=== PATIENT | female | born 1960 | race Caucasian/White ===

== ENCOUNTER 2022-09-06 04:37 | Emergency (ER) | payer BC ==
--- OUTSIDE RECORDS SUMMARY | 2022-09-06 04:42 | XMS REPORT | Continuity of Care Document ---
:1960 Author Organization [facility] t Address [facility] [place] [address] Care Team Providers Name Role Phone MALORIE CORLEY Primary Care Physician Unavailable CARLITO PEARSON Attending Clinician Unavailable SANDY_RIGOC_Black_D Attending Clinician Unavailable MALORIE CORLEY Attending Clinician Unavailable Malorie Corley MD Attending Clinician JENNIFER_Summer Attending Clinician Unavailable Andres Rodriguez Attending Clinician [phone] SANDY_SHEREE_Black_[place] Admitting Clinician Unavailable MALORIE CORLEY Admitting Clinician Unavailable JENNIFER_Summer Admitting Clinician Unavailable Payers Payer Name Policy Type Policy Number Effective Date Expiration Date Jimy villarreal BCBS-[place]: [employer] [id number] 2017 - BLUECHOICE - OPEN 00:00:00 ACCESS BCBS PPO POS EPO [id number] 2019 [place]ICE 00:00:00 [place] [id number] 2019 ADVANTAGE (HMO) 00:00:00 Problems Condition Condition Condition Status Onset Resolution Last Treating Co mments Source Name Details Category Date Date Treatment Clinician Date Pneumonia Pneumonia Disease Active 2021-[address] [facility] due [facility] 09[facility]12 [facility] gram-negat gram-negat 00:00: Me dical serge serge 00 Center bacteria bacteria Allergies, Adverse Reactions, Alerts Allergy Allergy Status Severity Reaction(s) Onset Inactive Treating Comm ents Source Name Type Date Date Clinician CIPROFLO Allergy Active High Anaphylaxis 2021-[address] [facility] [address] [facility] XACIN -03 [facility] Medical 00 Center WASP Allergy Active 2021-[address] [facility] VENOM 1-03 [facility] Center Ciproflo Propensi Active Anaphylaxis 2021-[address] xacin ty to 09-12 [facility] adverse 00:00: Medical reaction 00 Center s Wasp Propensi Active 2021-[address] [facility] Venom ty to 09-12 [facility] adverse 00:00: Medical reaction 00 Center s NO KNOWN Allergy Active [facility] Social History Social Habit Start Date Stop Date Quantity Comments Source History SDOH [facility] Alcohol Std Drinks Medica l Center History SDOH [facility] Alcohol [facility]inge Medical Armando [facility] History [facility] Alcohol Comment Medical C enter History SDOH [facility] Transport Non-Med Medical Center History [facility] 2022-07-14 2022-07-[address] [facility] Transport Med 00:00:00 00:00:[address] History [facility] 2022-07-14 2022-07-[address] [facility] Housing Unable to 00:00:00 00:00:00 Medical Center Pay History [facility] 2022-07-14 2022-07-[address] [facility] Housing Places 00:00:00 00:00:00 Medical Ce nter Lived History [facility] 2022-07-14 2022-07-[address] [facility] Housing Homeless 00:00:00 00:00:00 Medical Center Last Year Tobacco use and 2022-07-13 2022-07-[address] [facility] exposure 00:00:00 00:00:00 Medical Center Alcohol intake 2022-07-13 2022-07-[address] [facility] 00:00:00 00:00:00 non-drinker Medical Cente r (finding) History [facility] 2022-07-13 2022-07-[address] [facility] Alcohol Frequency 00:00:00 00:00:00 Medical Center Sex Assigned At [address] [facility] 00:00[facility]00 00:[facility]:00 Medical Center Smoking Status Start Date Stop Date Source Never smoker [facility] Medications Ordered Filled Start Stop Current Ordering Indication Dosage Frequency Signature Comments Components Source Medication Medication Date Date Medication? Clinician (SIG) Name Name ondansetron 2021-09 Yes 4mg Take [address] (ZOFRAN) 4 08 by mouth [facility] MG tablet 15:50: daily as Medi dalia 37 needed for Center Nausea. sucralfate 2021-09 Yes 1g Take [address] [facility] (CARAFATE) 08 by mouth 3 [facility] 1 gram 15:50: (three) Medical tablet 37 times Center daily before meals BEFORE MEALS . metFORMIN 2021-09 Yes 500mg Take [address] [facility] (GLUCOPHAGE 1-08 mg by [facility] ) 500 MG 15:50: mouth Medical tablet 37 daily with Center breakfast. albuterol 2021-09- Yes 1{puff} Inhale [address] [facility] HFA 09-17 puff by [facility] (VENTOLIN 00:00: 23:59 mouth via Me dical HFA) 90 00 :00 inhaler Center mcg/actuati every 6 on inhaler (six) hours as needed for Wheezing. cefdinir 2021-09- No 300mg Q.5D Take 1 [facility] (OMNICEF) 09-17 capsule [facility] 300 MG 00:00: 23:59 (300 mg Medical capsule 00 :00 total) by Center mouth 2 (two) times daily for 10 days. benzonatate 2021-09- No 100mg Take [address] (TESSALON) 09-17 capsule [facility] 100 MG 00:00: 23:59 (100 mg Medical capsule 00 :00 total) by Center mouth 3 (three) times daily as needed for Cough for up to 7 days. methylPREDN 2021-09- No follow [facility] ISolone 09-17 package [facility] (MEDROL 00:00: 23:59 directions Med ical DOSEPACK) 4 00 :00 . Center mg tablet Xeomin 100 Xeomin 100 No Xeomin 100 [place] unit unit 2-25 unit Communi intramuscul intramuscul 16:26: intramuscu ty ar ar 00 lar Hospita solutionInj solutionInj solutionIn l ect 20 ect 20 ject 20 Clinics units by units by units by intramuscul intramuscul intramuscu ar route. ar route. lar route. omeprazole omeprazole No omeprazole [place] 40 mg 40 mg 40 mg Communi capsule,del capsule,del capsule,de ty ayed ayed layed Hospita release release release l TAKE 1 TAKE 1 TAKE 1 Clinics CAPSULE BY CAPSULE BY CAPSULE BY MOUTH ONCE MOUTH ONCE MOUTH ONCE DAILY DAILY DAILY ondansetron ondansetron No ondansetro [place] HCl 4 mg HCl 4 mg n HCl 4 mg C [facility]i tablet TAKE tablet TAKE tablet ty 1 TABLET BY 1 TABLET BY TAKE 1 Hospita MOUTH TWICE MOUTH TWICE TABLET BY l DAILY DAILY MOUTH Clinic s NEEDED FOR NEEDED FOR TWICE NAUSEA AND NAUSEA AND DAILY VOMITING VOMITING NEEDED FOR NAUSEA AND VOMITING pantoprazol pantoprazol No pantoprazo [place] e 40 mg e 40 mg le 40 mg Commu ni tablet,jonathan tablet,jonathan tablet,del ty yed release yed release ayed H ospita TAKE 1 TAKE 1 release l TABLET BY TABLET BY TAKE 1 Cli nics MOUTH ONCE MOUTH ONCE TABLET BY DAILY DAILY MOUTH ONCE DAILY potassium potassium No potassium [place] chloride ER chloride ER chloride Communi 20 mEq 20 mEq ER 20 mEq ty tablet,exte tablet,exte tablet,ext Hospita nded nded ended l release release release Clinic s TAKE 1 TAKE 1 TAKE 1 TABLET BY TABLET BY TABLET BY MOUTH ONCE MOUTH ONCE MOUTH ONCE DAILY DAILY DAILY potassium potassium No potassium [place] chloride ER chloride ER chloride Communi 20 mEq 20 mEq ER 20 mEq ty tablet,exte tablet,exte tablet,ext Hospita nded nded ended l release(par release(par release(la Clinics t/cryst) t/cryst) rt/cryst) TAKE 1 TAKE 1 TAKE 1 TABLET BY TABLET BY TABLET BY MOUTH ONCE MOUTH ONCE MOUTH ONCE DAILY DAILY DAILY promethazin promethazin No promethazi [place] e 6.25 e 6.25 ne 6.25 Communi mg-codeine mg-codeine mg-codeine ty 10 mg/5 mL 10 mg/5 mL 10 mg/5 mL Hospita syrup TAKE syrup TAKE syrup TAKE l 5 ML BY 5 ML BY 5 ML BY Clinic s MOUTH EVERY MOUTH EVERY MOUTH 6 HOURS 6 HOURS EVERY 6 NEEDED FOR NEEDED FOR HOURS COUGH COUGH NEEDED FOR COUGH promethazin promethazin No 5mL Q4H promethazi [place] e-DM 6.25 e-DM 6.25 ne-DM 6.25 Communi mg-15 mg/5 mg-15 mg/5 mg-15 mg/5 ty mL oral mL oral mL oral Hospit a syrup Take syrup Take syrup Take l 5 mL every 5 mL every 5 mL every Clinics 4 hours by 4 hours by 4 hours by oral route oral route oral route as needed as needed as needed for 4 days. for 4 days. for 4 days. quetiapine quetiapine No quetiapine [place] 50 mg 50 mg 50 mg Communi tablet TAKE tablet TAKE tablet ty 1 TABLET BY 1 TABLET BY TAKE 1 Hospita MOUTH AT MOUTH AT TABLET BY l BEDTIME BEDTIME MOUTH AT Clini cs BEDTIME sertraline sertraline No sertraline [place] 100 mg 100 mg 100 mg Communi tablet TAKE tablet TAKE tablet ty 2 TABLETS 2 TABLETS TAKE 2 [facility] BY MOUTH BY MOUTH TABLETS BY l ONCE DAILY ONCE DAILY MOUTH ONCE Clinics DAILY tizanidine tizanidine No tizanidine [place] 4 mg tablet 4 mg tablet 4 mg C [facility]i TAKE 1 TAKE 1 tablet ty TABLET BY TABLET BY TAKE 1 [facility] MOUTH ONCE MOUTH ONCE TABLET BY l DAILY DAILY MOUTH ONCE C linics NEEDED FOR NEEDED FOR DAILY SPASMS SPASMS NEEDED FOR SPASMS Xeomin 100 Xeomin 100 No 20unit( Xeomin 100 [place] unit unit s) unit Communi intramuscul intramuscul intramuscu ty ar solution ar solution lar H ospita Inject 20 Inject 20 solution l units by units by Inject 20 Cl inics intramuscul intramuscul units by ar route. ar route. intramuscu lar route. Zithromax Zithromax No Zithromax [place] Z-Solis 250 Z-Solis 250 Z-Solis 250 Communi mg tablet mg tablet mg tablet ty TAKE 2 TAKE 2 TAKE 2 Hospita TABLETS TABLETS TABLETS l (500 MG) BY (500 MG) BY (500 MG) Clinics ORAL ROUTE ORAL ROUTE BY ORAL ONCE DAILY ONCE DAILY ROUTE ONCE FOR 1 DAY FOR 1 DAY DAILY FOR THEN 1 THEN 1 1 DAY THEN TABLET (250 TABLET (250 1 TABLET MG) BY ORAL MG) BY ORAL (250 MG) ROUTE ONCE ROUTE ONCE BY ORAL DAILY FOR 4 DAILY FOR 4 ROUTE ONCE DAYS DAYS DAILY FOR 4 DAYS zolpidem 10 zolpidem 10 No zolpidem [place] mg tablet mg tablet 10 mg Comm uni TAKE 1 TAKE 1 tablet ty TABLET BY TABLET BY TAKE 1 [facility] MOUTH AT MOUTH AT TABLET BY l BEDTIME BEDTIME MOUTH AT Clinics NEEDED FOR NEEDED FOR BEDTIME INSOMNIA INSOMNIA NEEDED FOR INSOMNIA albuterol albuterol No albuterol [place] sulfate HFA sulfate HFA sulfate Communi 90 90 HFA 90 ty mcg/actuati mcg/actuati mcg/actuat [facility] on aerosol ion l inhaler inhaler aerosol Clinic s INHALE 1 INHALE 1 inhaler PUFF BY PUFF BY INHALE 1 MOUTH EVERY MOUTH EVERY PUFF BY 4 TO 6 4 TO 6 MOUTH HOURS HOURS EVERY 4 TO NEEDED FOR NEEDED FOR 6 HOURS SHORTNESS SHORTNESS NEEDED FOR OF BREATH OF BREATH SHORTNESS OF BREATH amlodipine amlodipine No amlodipine [place] 10 mg 10 mg 10 mg Communi tablet TAKE tablet TAKE tablet ty 1 TABLET BY 1 TABLET BY TAKE 1 Hospita MOUTH ONCE MOUTH ONCE TABLET BY l DAILY DAILY MOUTH ONCE Clinics DAILY celecoxib celecoxib No celecoxib [place] 200 mg 200 mg 200 mg Communi capsule capsule capsule ty TAKE 1 TAKE 1 TAKE 1 Hospita CAPSULE BY CAPSULE BY CAPSULE BY l MOUTH ONCE MOUTH ONCE MOUTH ONCE Clinics DAILY DAILY DAILY Euthyrox Euthyrox No Euthyrox Swe dest[place] 100 mcg 100 mcg 100 mcg Commun i tablet TAKE tablet TAKE tablet ty 1 TABLET BY 1 TABLET BY TAKE 1 Hospita MOUTH ONCE MOUTH ONCE TABLET BY l DAILY DAILY MOUTH ONCE Clinics DAILY furosemide furosemide No furosemide [place] 40 mg 40 mg 40 mg Communi tablet TAKE tablet TAKE tablet ty 1 TABLET BY 1 TABLET BY TAKE 1 Hospita MOUTH ONCE MOUTH ONCE TABLET BY l DAILY DAILY MOUTH ONCE Clinics DAILY glimepiride glimepiride No glimepirid [place] 2 mg tablet 2 mg tablet e 2 mg Communi TAKE 1 TAKE 1 tablet ty TABLET BY TABLET BY TAKE 1 [facility] MOUTH TWICE MOUTH TWICE TABLET BY l DAILY DAILY MOUTH Clinics TWICE DAILY lorazepam 2 lorazepam 2 No lorazepam [place] mg tablet mg tablet 2 mg Commu ni TAKE 1 TAKE 1 tablet ty TABLET BY TABLET BY TAKE 1 [facility] MOUTH TWICE MOUTH TWICE TABLET BY l DAILY DAILY MOUTH Clinic s NEEDED FOR NEEDED FOR TWICE ANXIETY ANXIETY DAILY NEEDED FOR ANXIETY meclizine meclizine No meclizine [place] 25 mg 25 mg 25 mg Communi tablet TAKE tablet TAKE tablet ty 1 TABLET BY 1 TABLET BY TAKE 1 Hospita MOUTH TWICE MOUTH TWICE TABLET BY l DAILY DAILY MOUTH Clinic s NEEDED FOR NEEDED FOR TWICE ITCHING ITCHING DAILY NEEDED FOR ITCHING metformin metformin No metformin [place] ER 500 mg ER 500 mg ER 500 mg Communi tablet,exte tablet,exte tablet,ext ty nded nded ended Hospita release 24 release 24 release 24 l hr TAKE 1 hr TAKE 1 hr TAKE 1 Clinics TABLET BY TABLET BY TABLET BY MOUTH TWICE MOUTH TWICE MOUTH DAILY DAILY TWICE DAILY methylpredn methylpredn No 1dose methylpred [place] isolone 4 isolone 4 pk(s) nisolone 4 Communi mg tablets mg tablets mg tablets ty in a dose in a dose in a dose Hospita pack Take 1 pack Take 1 pack Take l dose pk by dose pk by 1 dose pk Clinics oral route oral route by oral as as route as directed. directed. directed. omeprazole omeprazole No omeprazole [place] 40 mg 40 mg 40 mg Communi capsule,del capsule,del capsule,de ty ayed ayed layed Hospita release release release l TAKE 1 TAKE 1 TAKE 1 Clinics CAPSULE BY CAPSULE BY CAPSULE BY MOUTH ONCE MOUTH ONCE MOUTH ONCE DAILY DAILY DAILY ondansetron ondansetron No ondansetro [place] HCl 4 mg HCl 4 mg n HCl 4 mg C [facility]i tablet TAKE tablet TAKE tablet ty 1 TABLET BY 1 TABLET BY TAKE 1 Hospita MOUTH TWICE MOUTH TWICE TABLET BY l DAILY DAILY MOUTH Clinic s NEEDED FOR NEEDED FOR TWICE NAUSEA AND NAUSEA AND DAILY VOMITING VOMITING NEEDED FOR NAUSEA AND VOMITING pantoprazol pantoprazol No pantoprazo [place] e 40 mg e 40 mg le 40 mg Commu ni tablet,jonathan tablet,jonathan tablet,del ty yed release yed release ayed H ospita TAKE 1 TAKE 1 release l TABLET BY TABLET BY TAKE 1 Cli nics MOUTH ONCE MOUTH ONCE TABLET BY DAILY DAILY MOUTH ONCE DAILY potassium potassium No potassium [place] chloride ER chloride ER chloride Communi 20 mEq 20 mEq ER 20 mEq ty tablet,exte tablet,exte tablet,ext Hospita nded nded ended l release release release Clinic s TAKE 1 TAKE 1 TAKE 1 TABLET BY TABLET BY TABLET BY MOUTH ONCE MOUTH ONCE MOUTH ONCE DAILY DAILY DAILY potassium potassium No potassium [place] chloride ER chloride ER chloride Communi 20 mEq 20 mEq ER 20 mEq ty tablet,exte tablet,exte tablet,ext Hospita nded nded ended l release(par release(par release(pa Clinics t/cryst) t/cryst) rt/cryst) TAKE 1 TAKE 1 TAKE 1 TABLET BY TABLET BY TABLET BY MOUTH ONCE MOUTH ONCE MOUTH ONCE DAILY DAILY DAILY promethazin promethazin No promethazi [place] e 6.25 e 6.25 ne 6.25 Communi mg-codeine mg-codeine mg-codeine ty 10 mg/5 mL 10 mg/5 mL 10 mg/5 mL Hospita syrup TAKE syrup TAKE syrup TAKE l 5 ML BY 5 ML BY 5 ML BY Clinic s MOUTH EVERY MOUTH EVERY MOUTH 6 HOURS 6 HOURS EVERY 6 NEEDED FOR NEEDED FOR HOURS COUGH COUGH NEEDED FOR COUGH promethazin promethazin No 5mL Q4H promethazi [place] e-DM 6.25 e-DM 6.25 ne-DM 6.25 Communi mg-15 mg/5 mg-15 mg/5 mg-15 mg/5 ty mL oral mL oral mL oral Hospit a syrup Take syrup Take syrup Take l 5 mL every 5 mL every 5 mL every Clinics 4 hours by 4 hours by 4 hours by oral route oral route oral route as needed as needed as needed for 4 days. for 4 days. for 4 days. quetiapine quetiapine No quetiapine [place] 50 mg 50 mg 50 mg Communi tablet TAKE tablet TAKE tablet ty 1 TABLET BY 1 TABLET BY TAKE 1 Hospita MOUTH AT MOUTH AT TABLET BY l BEDTIME BEDTIME MOUTH AT Clini cs BEDTIME sertraline sertraline No sertraline [place] 100 mg 100 mg 100 mg Communi tablet TAKE tablet TAKE tablet ty 2 TABLETS 2 TABLETS TAKE 2 [facility] BY MOUTH BY MOUTH TABLETS BY l ONCE DAILY ONCE DAILY MOUTH ONCE Clinics DAILY tizanidine tizanidine No tizanidine [place] 4 mg tablet 4 mg tablet 4 mg C [facility]i TAKE 1 TAKE 1 tablet ty TABLET BY TABLET BY TAKE 1 [facility] MOUTH ONCE MOUTH ONCE TABLET BY l DAILY DAILY MOUTH ONCE C linics NEEDED FOR NEEDED FOR DAILY SPASMS SPASMS NEEDED FOR SPASMS Xeomin 100 Xeomin 100 No 20unit( Xeomin 100 [place] unit unit s) unit Communi intramuscul intramuscul intramuscu ty ar solution ar solution lar H ospita Inject 20 Inject 20 solution l units by units by Inject 20 Cl inics intramuscul intramuscul units by ar route. ar route. intramuscu lar route. Zithromax Zithromax No Zithromax [place] Z-Solis 250 Z-Solis 250 Z-Solis 250 Communi mg tablet mg tablet mg tablet ty TAKE 2 TAKE 2 TAKE 2 Hospita TABLETS TABLETS TABLETS l (500 MG) BY (500 MG) BY (500 MG) Clinics ORAL ROUTE ORAL ROUTE BY ORAL ONCE DAILY ONCE DAILY ROUTE ONCE FOR 1 DAY FOR 1 DAY DAILY FOR THEN 1 THEN 1 1 DAY THEN TABLET (250 TABLET (250 1 TABLET MG) BY ORAL MG) BY ORAL (250 MG) ROUTE ONCE ROUTE ONCE BY ORAL DAILY FOR 4 DAILY FOR 4 ROUTE ONCE DAYS DAYS DAILY FOR 4 DAYS zolpidem 10 zolpidem 10 No zolpidem [place] mg tablet mg tablet 10 mg Comm uni TAKE 1 TAKE 1 tablet ty TABLET BY TABLET BY TAKE 1 [facility] MOUTH AT MOUTH AT TABLET BY l BEDTIME BEDTIME MOUTH AT Clinics NEEDED FOR NEEDED FOR BEDTIME INSOMNIA INSOMNIA NEEDED FOR INSOMNIA albuterol albuterol No albuterol [place] sulfate HFA sulfate HFA sulfate Communi 90 90 HFA 90 ty mcg/actuati mcg/actuati mcg/actuat Hospita on aerosol on aerosol ion l inhaler inhaler aerosol Clinic s INHALE 1 INHALE 1 inhaler PUFF BY PUFF BY INHALE 1 MOUTH EVERY MOUTH EVERY PUFF BY 4 TO 6 4 TO 6 MOUTH HOURS HOURS EVERY 4 TO NEEDED FOR NEEDED FOR 6 HOURS SHORTNESS SHORTNESS NEEDED FOR OF BREATH OF BREATH SHORTNESS OF BREATH amlodipine amlodipine No amlodipine [place] 10 mg 10 mg 10 mg Communi tablet TAKE tablet TAKE tablet ty 1 TABLET BY 1 TABLET BY TAKE 1 Hospita MOUTH ONCE MOUTH ONCE TABLET BY l DAILY DAILY MOUTH ONCE Clinics DAILY azithromyci azithromyci No azithromyc [place] n 250 mg n 250 mg in 250 mg Co [facility] tablet TAKE tablet TAKE tablet ty 2 TABLETS 2 TABLETS TAKE 2 [facility] BY MOUTH ON BY MOUTH ON TABLETS BY l DAY 1 AND DAY 1 AND MOUTH ON C linics THEN TAKE 1 THEN TAKE 1 DAY 1 AND TABLET BY TABLET BY THEN TAKE MOUTH ONCE MOUTH ONCE 1 TABLET A DAY ON A DAY ON BY MOUTH DAY 2 DAY 2 ONCE A DAY THROUGH DAY THROUGH DAY ON DAY 2 5 5 THROUGH DAY 5 celecoxib celecoxib No celecoxib [place] 200 mg 200 mg 200 mg Communi capsule capsule capsule ty TAKE 1 TAKE 1 TAKE 1 Hospita CAPSULE BY CAPSULE BY CAPSULE BY l MOUTH ONCE MOUTH ONCE MOUTH ONCE Clinics DAILY DAILY DAILY Euthyrox Euthyrox No Euthyrox Swe destin 100 mcg 100 mcg 100 mcg Commun i tablet TAKE tablet TAKE tablet ty 1 TABLET BY 1 TABLET BY TAKE 1 Hospita MOUTH ONCE MOUTH ONCE TABLET BY l DAILY DAILY MOUTH ONCE Clinics DAILY furosemide furosemide No furosemide [place] 40 mg 40 mg 40 mg Communi tablet TAKE tablet TAKE tablet ty 1 TABLET BY 1 TABLET BY TAKE 1 Hospita MOUTH ONCE MOUTH ONCE TABLET BY l DAILY DAILY MOUTH ONCE Clinics DAILY glimepiride glimepiride No glimepirid [place] 2 mg tablet 2 mg tablet e 2 mg Communi TAKE 1 TAKE 1 tablet ty TABLET BY TABLET BY TAKE 1 [facility] MOUTH TWICE MOUTH TWICE TABLET BY l DAILY DAILY MOUTH Clinics TWICE DAILY lorazepam 2 lorazepam 2 No lorazepam [place] mg tablet mg tablet 2 mg Commu ni TAKE 1 TAKE 1 tablet ty TABLET BY TABLET BY TAKE 1 [facility] MOUTH TWICE MOUTH TWICE TABLET BY l DAILY DAILY MOUTH Clinic s NEEDED FOR NEEDED FOR TWICE ANXIETY ANXIETY DAILY NEEDED FOR ANXIETY meclizine meclizine No meclizine [place] 25 mg 25 mg 25 mg Communi tablet TAKE tablet TAKE tablet ty 1 TABLET BY 1 TABLET BY TAKE 1 Hospita MOUTH TWICE MOUTH TWICE TABLET BY l DAILY DAILY MOUTH Clinic s NEEDED FOR NEEDED FOR TWICE ITCHING ITCHING DAILY NEEDED FOR ITCHING metformin metformin No metformin [place] ER 500 mg ER 500 mg ER 500 mg Communi tablet,exte tablet,exte tablet,ext ty nded nded ended Hospita release 24 release 24 release 24 l hr TAKE 1 hr TAKE 1 hr TAKE 1 Clinics TABLET BY TABLET BY TABLET BY MOUTH TWICE MOUTH TWICE MOUTH DAILY DAILY TWICE DAILY omeprazole omeprazole No omeprazole [place] 40 mg 40 mg 40 mg Communi capsule,del capsule,del capsule,de ty ayed ayed layed Hospita release release release l TAKE 1 TAKE 1 TAKE 1 Clinics CAPSULE BY CAPSULE BY CAPSULE BY MOUTH ONCE MOUTH ONCE MOUTH ONCE DAILY DAILY DAILY ondansetron ondansetron No ondansetro [place] HCl 4 mg HCl 4 mg n HCl 4 mg C [facility] tablet TAKE tablet TAKE tablet ty 1 TABLET BY 1 TABLET BY TAKE 1 Hospita MOUTH TWICE MOUTH TWICE TABLET BY l DAILY DAILY MOUTH Clinic s NEEDED FOR NEEDED FOR TWICE NAUSEA AND NAUSEA AND DAILY VOMITING VOMITING NEEDED FOR NAUSEA AND VOMITING pantoprazol pantoprazol No pantoprazo [place] e 40 mg e 40 mg le 40 mg Commu ni tablet,jonathan tablet,jonathan tablet,del ty yed release yed release ayed [facility]spita TAKE 1 TAKE 1 release l TABLET BY TABLET BY TAKE 1 Cli nics MOUTH ONCE MOUTH ONCE TABLET BY DAILY DAILY MOUTH ONCE DAILY potassium potassium No potassium [place] chloride ER chloride ER chloride Communi 20 mEq 20 mEq ER 20 mEq ty tablet,exte tablet,exte tablet,ext Hospita nded nded ended l release release release Clinic s TAKE 1 TAKE 1 TAKE 1 TABLET BY TABLET BY TABLET BY MOUTH ONCE MOUTH ONCE MOUTH ONCE DAILY DAILY DAILY potassium potassium No potassium [place] chloride ER chloride ER chloride Communi 20 mEq 20 mEq ER 20 mEq ty tablet,exte tablet,exte tablet,ext Hospita nded nded ended l release(par release(par release(pa Clinics t/cryst) t/cryst) rt/cryst) TAKE 1 TAKE 1 TAKE 1 TABLET BY TABLET BY TABLET BY MOUTH ONCE MOUTH ONCE MOUTH ONCE DAILY DAILY DAILY promethazin promethazin No promethazi [place] e 6.25 e 6.25 ne 6.25 Communi mg-codeine mg-codeine mg-codeine ty 10 mg/5 mL 10 mg/5 mL 10 mg/5 mL [facility] syrup TAKE syrup TAKE syrup TAKE l 5 ML BY 5 ML BY 5 ML BY Clinic s MOUTH EVERY MOUTH EVERY MOUTH 6 HOURS 6 HOURS EVERY 6 NEEDED FOR NEEDED FOR HOURS COUGH COUGH NEEDED FOR COUGH quetiapine quetiapine No quetiapine [place] 50 mg 50 mg 50 mg Communi tablet TAKE tablet TAKE tablet ty 1 TABLET BY 1 TABLET BY TAKE 1 Hospita MOUTH AT MOUTH AT TABLET BY l BEDTIME BEDTIME MOUTH AT Clini cs BEDTIME sertraline sertraline No sertraline [place] 100 mg 100 mg 100 mg Communi tablet TAKE tablet TAKE tablet ty 2 TABLETS 2 TABLETS TAKE 2 [facility] BY MOUTH BY MOUTH TABLETS BY l ONCE DAILY ONCE DAILY MOUTH ONCE Clinics DAILY tizanidine tizanidine No tizanidine [place] 4 mg tablet 4 mg tablet 4 mg C [facility] TAKE 1 TAKE 1 tablet ty TABLET BY TABLET BY TAKE 1 [facility] MOUTH ONCE MOUTH ONCE TABLET BY l DAILY DAILY MOUTH ONCE C linics NEEDED FOR NEEDED FOR DAILY SPASMS SPASMS NEEDED FOR SPASMS Xeomin 100 Xeomin 100 No 20unit( Xeomin 100 [place] unit unit s) unit Communi intramuscul intramuscul intramuscu ty ar solution ar solution lar [facility]ita Inject 20 Inject 20 solution l units by units by Inject 20 Cl inics intramuscul intramuscul units by ar route. ar route. intramuscu lar route. zolpidem 10 zolpidem 10 No zolpidem [place] mg tablet mg tablet 10 mg Comm uni TAKE 1 TAKE 1 tablet ty TABLET BY TABLET BY TAKE 1 [facility] MOUTH AT MOUTH AT TABLET BY l BEDTIME BEDTIME MOUTH AT Clinics NEEDED FOR NEEDED FOR BEDTIME INSOMNIA INSOMNIA NEEDED FOR INSOMNIA albuterol albuterol No albuterol [place] sulfate HFA sulfate HFA sulfate Communi 90 90 HFA 90 ty mcg/actuati mcg/actuati mcg/actuat Hospita on aerosol on aerosol ion l inhaler inhaler aerosol Clinic s INHALE 1 INHALE 1 inhaler PUFF BY PUFF BY INHALE 1 MOUTH EVERY MOUTH EVERY PUFF BY 4 TO 6 4 TO 6 MOUTH HOURS HOURS EVERY 4 TO NEEDED FOR NEEDED FOR 6 HOURS SHORTNESS SHORTNESS NEEDED FOR OF BREATH OF BREATH SHORTNESS OF BREATH amlodipine amlodipine No amlodipine [place] 10 mg 10 mg 10 mg Communi tablet TAKE tablet TAKE tablet ty 1 TABLET BY 1 TABLET BY TAKE 1 Hospita MOUTH ONCE MOUTH ONCE TABLET BY l DAILY DAILY MOUTH ONCE Clinics DAILY celecoxib celecoxib No celecoxib [place] 200 mg 200 mg 200 mg Communi capsule capsule capsule ty TAKE 1 TAKE 1 TAKE 1 Hospita CAPSULE BY CAPSULE BY CAPSULE BY l MOUTH ONCE MOUTH ONCE MOUTH ONCE Clinics DAILY DAILY DAILY Euthyrox Euthyrox No Euthyrox Swe destin 100 mcg 100 mcg 100 mcg Commun i tablet TAKE tablet TAKE tablet ty 1 TABLET BY 1 TABLET BY TAKE 1 Hospita MOUTH ONCE MOUTH ONCE TABLET BY l DAILY DAILY MOUTH ONCE Clinics DAILY furosemide furosemide No furosemide [place] 40 mg 40 mg 40 mg Communi tablet TAKE tablet TAKE tablet ty 1 TABLET BY 1 TABLET BY TAKE 1 Hospita MOUTH ONCE MOUTH ONCE TABLET BY l DAILY DAILY MOUTH ONCE Clinics DAILY glimepiride glimepiride No glimepirid [place] 2 mg tablet 2 mg tablet e 2 mg Communi TAKE 1 TAKE 1 tablet ty TABLET BY TABLET BY TAKE 1 [facility] MOUTH TWICE MOUTH TWICE TABLET BY l DAILY DAILY MOUTH Clinics TWICE DAILY lorazepam 2 lorazepam 2 No lorazepam [place] mg tablet mg tablet 2 mg Commu ni TAKE 1 TAKE 1 tablet ty TABLET BY TABLET BY TAKE 1 [facility] MOUTH TWICE MOUTH TWICE TABLET BY l DAILY DAILY MOUTH Clinic s NEEDED FOR NEEDED FOR TWICE ANXIETY ANXIETY DAILY NEEDED FOR ANXIETY meclizine meclizine No meclizine [place] 25 mg 25 mg 25 mg Communi tablet TAKE tablet TAKE tablet ty 1 TABLET BY 1 TABLET BY TAKE 1 Hospita MOUTH TWICE MOUTH TWICE TABLET BY l DAILY DAILY MOUTH Clinic s NEEDED FOR NEEDED FOR TWICE ITCHING ITCHING DAILY NEEDED FOR ITCHING metformin metformin No metformin [place] ER 500 mg ER 500 mg ER 500 mg Communi tablet,exte tablet,exte tablet,ext ty nded nded ended Hospita release 24 release 24 release 24 l hr TAKE 1 hr TAKE 1 hr TAKE 1 Clinics TABLET BY TABLET BY TABLET BY MOUTH TWICE MOUTH TWICE MOUTH DAILY DAILY TWICE DAILY methylpredn methylpredn No 1dose methylpred [place] isolone 4 isolone 4 pk(s) nisolone 4 Communi mg tablets mg tablets mg tablets ty in a dose in a dose in a dose Hospita pack Take 1 pack Take 1 pack Take l dose pk by dose pk by 1 dose pk Clinics oral route oral route by oral as as route as directed. directed. directed. Vital Signs Vital Name Observation Time Observation Value Comments Source HEIGHT 2022-07-13 19:15:00 161.3 cm WEIGHT 2022-07-13 19:15:00 75.297 kg HEIGHT 2022-07-13 19:15:00 161.3 cm WEIGHT 2022-07-13 19:15:00 75.297 kg HEIGHT 2022-07-13 19:15:00 161.3 cm WEIGHT 2022-07-13 19:15:00 75.297 kg Heart rate 2022-07-18 14:23:00 100 /min [facility] Respiratory rate 2022-07-18 14:23:00 18 /min [facility] Oxygen saturation in 2022-07-18 14:23:00 98 /min [facility] Arterial blood by Medical Ce nter Pulse oximetry Systolic blood 2022-07-18 12:00:00 185 mm[Hg] [facility] Diastolic blood 2022-07-18 12:00:00 87 mm[Hg] [facility] Body temperature 2022-07-18 12:00:00 36.39 Henrietta [facility] Body height 2022-07-13 19:15:00 161.3 cm [facility] Body weight 2022-07-13 19:15:00 75.297 kg [facility] BMI 2022-07-13 19:15:00 28.94 kg/m2 [facility] Procedures Procedure Date / Time Performed Performing Clinician Sour e POCT-GLUCOSE METER 2022-07-18 11:56:00 [facility] VIEW PORTABLE 2022-07-18 11:25:00 Carlito Pearson [facility] POCT-GLUCOSE METER 2022-07-18 06:10:00 Malorie Corley [facility] MAGNESIUM 2022-07-18 04:55:00 Malorie Corley [facility] COMPREHENSIVE METABOLIC 2022-07-18 04:55:00 Malorie Corley [facility] CBC W/PLT COUNT & AUTO 2022-07-18 04:55:00 [facility] W/PLT COUNT & AUTO 2022-07-18 04:55:00 [facility] POCT-GLUCOSE METER 2022-07-17 20:24:00 Malorie Corley [facility] POCT-GLUCOSE METER 2022-07-17 16:44:00 Barney [facility] POCT-GLUCOSE METER 2022-07-17 13:23:00 Malorie Corley [facility] XR CHEST 1 VIEW PORTABLE 2022-07-17 12:03:[address] [facility] US THORACENTESIS 2022-07-17 11:50:00 Mahi [facility] LACTATE DEHYDROGENASE 2022-07-17 11:49:00 Mahi [facility] ([facility]), BODY FLUID Medical Center PROTEIN, BODY FLUID 2022-07-17 11:49:00 Mahi [facility] BODY FLUID CELL COUNT 2022-07-17 11:49:00 Mahi [facility] WITH DIFFERENTIAL Medical Center GLUCOSE, BODY FLUID 2022-07-17 11:49:00 Mahi [facility] BODY FLUID CULTURE + GRAM 2022-07-17 11:48:00 Mahi [facility] CYTOLOGY 2022-07-17 11:48:00 [facility] PROTHROMBIN TIME/INR 2022-07-17 08:06:00 Destiney [facility] APTT 2022-07-17 08:06:00 Destiney [facility] POCT-GLUCOSE METER 2022-07-17 06:34:00 [facility]UM 2022-07-17 04:45:00 Malorie Corley [facility] COMPREHENSIVE METABOLIC 2022-07-17 04:45:00 Malorie Corley [facility] CBC W/PLT COUNT & AUTO 2022-07-17 04:45:00 Malorie Corley [facility] CBC W/PLT COUNT & AUTO 2022-07-17 04:45:00 [facility] POCT-GLUCOSE METER 2022-07-16 20:25:00 [facility] LEGIONELLA ANTIGEN, URINE 2022-07-16 18:37:00 Mahi [facility] POCT-GLUCOSE METER 2022-07-16 17:28:00 [facility] STREP PNEUMONIAE ANTIGEN 2022-07-16 17:23:00 Carlito Pearson [facility] POCT-GLUCOSE METER 2022-07-16 11:07:00 [facility] POCT-GLUCOSE METER 2022-07-16 08:58:00 [facility] 2022-07-16 05:17:00 Barney [facility] MAGNESIUM 2022-07-16 03:17:00 [facility]PRE[facility]IVE [facility]OLIC 2022-07-16 03:17:00 [facility] & AUTO 2022-07-16 03:17:00 Barney [facility] CBC W/PLT COUNT & AUTO 2022-07-16 03:17:00 Barney Malorie [facility] POCT-GLUCOSE METER 2022-07-15 18:45:00 Barney Malorie [facility] POCT-GLUCOSE METER 2022-07-15 16:24:00 [facility] POCT-GLUCOSE METER 2022-07-15 11:27:00 Barney Malorie [facility] POCT-GLUCOSE METER 2022-07-15 06:27:00 Edison [facility] MAGNESIUM 2022-07-15 04:17:00 Barney [facility] COMPREHENSIVE METABOLIC 2022-07-15 04:17:00 Barney [facility] CBC W/PLT COUNT & AUTO 2022-07-15 04:17:00 Barney Malorie [facility] CBC W/PLT COUNT & AUTO 2022-07-15 04:17:00 Barney Malorie [facility] POCT-GLUCOSE METER 2022-07-14 20:16:00 [facility] POCT-GLUCOSE METER 2022-07-14 16:12:00 Malorie Corley [facility] CT CHEST WITHOUT IV 2022-07-14 13:09:00 [facility] POCT-GLUCOSE METER 2022-07-14 11:29:00 Malorie Corley [facility] URINALYSIS W/ MICROSCOPIC 2022-07-14 04:35:00 [facility] MAGNESIUM 2022-07-14 04:34:00 Malorie Corley [facility] COMPREHENSIVE METABOLIC 2022-07-14 04:34:00 Malorie Corley [facility] CBC W/PLT COUNT & AUTO 2022-07-14 04:34:00 Malorie Corley [facility] CBC W/PLT COUNT & AUTO 2022-07-14 04:34:00 [facility] COMPREHENSIVE METABOLIC 2022-07-13 22:03:00 [facility] 2022-07-13 22:03:00 Malorie Corley [facility] CBC W/PLT COUNT & AUTO 2022-07-13 22:03:00 Malorie Corley [facility] HEMOGLOBIN A1C 2022-07-13 22:03:00 Malorie [facility] LIPID PANEL 2022-07-13 22:03:00 Malorie Corley [facility] CBC W/PLT COUNT & AUTO 2022-07-13 22:03:00 Malorie Corley [facility] SARS-COV2/INFLUENZA/RSV 2022-07-13 21:44:00 [facility] BLOOD CULTURE 2022-07-13 21:43:00 [facility] POCT-GLUCOSE METER 2022-07-13 20:39:00 Malorie Corley [facility] XR CHEST 1 VIEW PORTABLE 2022-07-13 19:50:[address] [facility] Plan of Care Planned Activity Planned Date Details Comments Source Future Scheduled 2027-07-13 Lipid panel (procedure) [facility] Test 00:00:00 [code = 25164679] Medical Ce nter Future Scheduled 2023-07-[address] [facility] Test 00:00:00 Counseling and Medical Cente r Screening (12+) [code = Tobacco Cessation Counseling and Screening (12+)] Future Scheduled 2022-05-11 INFLUENZA VACCINE (#1) [facility] 00:[facility]:00 [code = INFLUENZA Medical Ce nter VACCINE (#1)] Future Scheduled 2021-09-[address] [facility] Test 00:00:00 (12+) [code = Medical Center DEPRESSION SCREENING (12+)] Future Scheduled 2021-07-11 COVID-19 VACCINE (3 - [facility]:00 Booster for Pfizer Medical C enter series) [code = COVID-19 VACCINE (3 - Booster for Pfizer series)] Future Scheduled 2008 SHINGLES VACCINES ([address] [facility] Test 00:00:00 2) [code = SHINGLES [facility] VACCINES (1 of 2)] Future Scheduled 1979 Screening for malignant [facility] Test 00:00:00 neoplasm of cervix Medical C enter (procedure) [code = 807298730] Future Scheduled 1977 DTAP/TDAP/TD VACCINES [facility] 00:00:00 (1 - Tdap) [code = Medical C enter DTAP/TDAP/TD VACCINES (1 - Tdap)] Future Scheduled 1976 HEPATITIS C SCREENING [facility] 00:00:00 [code = HEPATITIS C Medical Center SCREENING] Future Scheduled [address] [facility] Test 00:00:00 0-64 YRS (1 - PCV) Medical C enter [code = PNEUMOCOCCAL VACCINE 0-64 YRS (1 - PCV)] Future Scheduled 1958 Screening for malignant [facility] Test 00:00:00 neoplasm of breast Medical C enter (procedure) [code = 978131331] Future Scheduled 1958 CT Colonography (combo) [facility] Test 00:00:00 [code = CT Colonography [facility] (combo)] Future Scheduled 1958 Screening for malignant [facility] Test 00:00:00 neoplasm of colon Medical Ce nter (procedure) [code = 302173926] Future Scheduled 1958 Screening for malignant [facility] Test 00:00:00 neoplasm of colon Medical Ce nter (procedure) [code = 774443985] Future Scheduled 1958 Screening for malignant [facility] Test 00:00:00 neoplasm of colon Medical Ce nter (procedure) [code = 592702403] Future Scheduled 1958 Screening for malignant [facility] Test 00:00:00 neoplasm of colon Medical Ce nter (procedure) [code = 937860681] Future Scheduled 1960 Sigmoidoscopy [code = [facility] Sigmoidoscopy] Medical Milagros r Encounters Start End Encounter Admission Attending Care Care Encounter Source Date/Time Date/Time Type Type Clinicians Facility Department ID 2022-08-27 2022-08-27 Outpatient VARSHA PEARSON [id number] [place] 00:00:00 00:00:00 CARLITO Eli ld 2022-08-14 2022-08-14 Outpatient GC_SWHAOMC_ PRIV PRIV [id number] [facility] 00:00:00 00:00:00 Black_D [id number] Medica l 2022-07-13 2022-07-18 [id number] 18:14:00 15:50:00 Encounter Gianluca [facility] 2022-07-13 2022-07-18 Inpatient UR BARNEY [facility] [id number] [facility] 18:14:00 15:50:00 Med 2022-07-13 2022-07-13 Travel [facility] [id number] [facility] 00[facility]00 [facility] 2020-11-30 2020-11-30 Outpatient SISSON_C [facility] 2020 [place] 02:53:00 02:53:00 0323 [facility] 2020-11-17 2020-11-17 Outpatient [facility] 2020 [place] 01:47:00 01:47:00 0310 [facility] 2020-11-17 2020-11-17 Outpatient Jennifer [facility] [id number] 00:00:00 00:00:00 Andres [id number] 2020-11-17 2020-11-17 [facility] [place] 00:[place]:00 00:00:00 Jennifer [facility] MSN, SAUSAGE LINKER, Hospital - ty TRANSFER AND LINE UP WORKER-C: [address] [place] [facility] s [address], [facility] [address], [place], [place] MSN, TRANSFER AND LINE UP WORKER-C [id number] , Ph. 2020-11-17 2020-11-17 Outpatient Jennifer [facility] [id number] 00:00:00 00:00:00 Andres [id number] 2020-11-08 2020-11-08 Outpatient [facility] 2020 [place] 09:10:00 09:10:00 0301 [facility] 2020-11-04 2020-11-04 Outpatient [facility]C [facility] 2020 [place] 04:00:00 04:00:00 0225 [facility] i [facility] 2020-11-04 2020-11-04 [facility] [place] 00:00:00 00:00:00 Jennifer [facility] Comm uni MSN, SAUSAGE LINKER, Hospital - ty TRANSFER AND LINE UP WORKER-C: [address] [place] [facility], [facility] s [address], [address], [place], [place] MSN, TRANSFER AND LINE UP WORKER-C [id number] , Ph. 2020-11-04 2020-11-04 [facility] [id number] 00:00:00 00:00:00 Andres [id number] 2020-11-01 2020-11-01 Outpatient FRANK [facility] [id number] [place] 10:58:00 10:58:00 0222 [facility] Results Test Description Test Time Test Comments Results Result Comments Source CYTOLOGY 2022-07-20 Medical Cytology 13:58:06 Report Case: [id number] Authorizing Provider: Carlito Pearson MD Collected: 07/17/2022 11:48 AM Ordering Location: [address] Med/Surg Received: 07/18/2022 10:12 AM Pathologist: Liat Kaur MD Specimen: Pleural, Left LEFT PLEURAL FLUID (CYTOSPINS AND CELL BLOCK): - NEGATIVE FOR MALIGNANCY - ACUTE INFLAMMATION Signing Pathologist Direct Phone Line: [phone] ically signed by Liat Kaur MD on 07/20/2022 at 1:58 [id number], [id number] pleural effusion, recent pneumonia due to gram-negative bacteria, history of Arthritis, Asthma, Diabetes mellitus, Hypertension, and Thyroid disease.LEFT PLEURAL FLUIDA. Pleural, Left.Received 250 ml delmer gelatinous fluid; prepared 4 cytospins and cell block(A2)- the cell block was fixed in formalin at 15:25 on 07/19/2022erformed.S atisfactorySt. [facility], Department of Pathology, [address] [place] [address], [facility]rt[facility], Department of Pathology, [address] [place] [address], [facility], Department of Pathology, [address] [place] [address], Body fluid culture + gram stain 2022-07-19 13:26:37 Test Item Value Reference Range Interpretation Comme nts Result (test code = 6463-4) See comment SESAR (test code = SESAR) No growth in 48 hours [facility] + GRAM [id number] 13:26:37 Test Item Value Reference Range Interpretation Comments CULTURE (BEAKER) (test code = See comment 1095) No growth in 48 hoursBLOOD [id number] 00:01:18 Test Item Value Reference Range Interpretation Comments CULTURE (BEAKER) (test No growth in 5 days code = 1095) BLOOD [id number] 00:01:18 Test Item Value Reference Range Interpretation Comments CULTURE (BEAKER) (test No growth in 5 days code = 1095) POC-Glucose [id number] 12:08:59 Test Item Value Reference Range Interpretation Comments POC-Glucose Meter (test 187 mg/dL 70-110 H : [facility] code = 1538) [address], [facility] [address]: Industrial Editor/Techni armando ID = [id number] for [place], Bro domingo Lab Interpretation (test Abnormal code = 66569-0) [facility] [id number] 12:08:59 Test Item Value Reference Range Interpretation Comments POC-GLUCOSE METER 187 mg/dL 70-110 H : TESTED A T [facility] [address]17 (BEAKER) (test code [address], = 1538) [facility] [address]: Industrial Editor/Techni armando ID = [id number] for Dapr emont, Apolonia RAD, CHEST, 1 VIEW, NON [id number] 11:44:00Reason for exam:->pleaural effusionShould this be performed at the bedside?->Yes [facility] : 1960 Sex: FFINAL REPORT Chest AP portable erect History provided: Left pleural effusion, status post left thoracentesis yesterday Heart size normal. Small loculated left basilar pneumothorax is againnoted. Residual pleural fluid on the left unchanged. Right lung remains clear. Signed: Orlando Lozano MDReport Verified Date/Time: 07/18/2022 11:44:27 Reading Location: [facility] Radiology Reading Room Body fluid cell count with [id number] 10:50:10 Test Item Value Reference Range Interpretation Comments Appearance (test code Hazy Clear A = 9335-1) Color (test code = Straw Colorless, 6824-7) Straw RBCs (test code = 1355 See_Comment H [Automate d 10021-1) message] The system which generated this result transmitted reference range : <=1 /cu mm. The reference range was not used to interpret this result as normal/abnormal . Adjusted WBC Count 2330 See_Comment H [Automat ed (test code = 24028-2) messag e] The system which generated this result transmitted reference range : <=5 /cu mm. The reference range was not used to interpret this result as normal/abnormal . Lining Cells (test 0 See_Comment [Automat ed code = 26375-4) message] The system which generated this result transmitted reference range : <=1 /cu mm. The reference range was not used to interpret this result as normal/abnormal . % Segs (test code = 84 % 96685-0) % Lymphs (test code = 15 % 51733-0) % Monos (test code = 1 % 81123-5) % Eos (test code = 0 % 12108-4) % Baso (test code = 0 % 99025-6) Interpretation (test Severe acute code = 19606-6) inflamamtion. Negative for malignancy Pathologist: (test Liat Kaur, code = 2620) ConchitaD. (electronic signature) Container Body Fluid EDTA Tube (test code = 2873) Lab Interpretation Abnormal (test code = 75379-4) [facility] WITH [id number] 10:50:10 Test Item Value Reference Range Interpretation Comments APPEARANCE FLUID Hazy Clear A (BEAKER) (test code = 510) COLOR FLUID Straw Colorless, Straw (BEAKER) (test code = 511) RBC FLUID (BEAKER) 1355 /cu mm See_Comment H [Automat ed (test code = 513) message] T he system which generated this result transmit darrian reference range : <=1. The refere nce range was not u sed to interpret th is result as normal/abnormal . ADJUSTED WBC FLUID 2330 /cu mm See_Comment H [Automat ed (BEAKER) (test code message] The = 1691) system which generated this result transmit darrian reference range : <=5. The refere nce range was not u sed to interpret th is result as normal/abnormal . LINING CELLS 0 /cu mm See_Comment [Automated (BEAKER) (test code message] The = 1590) system which generated this result transmit darrian reference range : <=1. The refere nce range was not u sed to interpret th is result as normal/abnormal . NEUTROPHILS FLUID 84 % (BEAKER) (test code = 1656) LYMPHS FLUID 15 % (BEAKER) (test code = 488) MONO/MACROPHAGE 1 % FLUID (BEAKER) (test code = 489) EOSINOPHILS FLUID 0 % (BEAKER) (test code = 491) BASO FLUID (BEAKER) 0 % (test code = 492) INTERPRETATION-210 Severe acute (BEAKER) (test code inflamamtion. = 2619) Negative for malignancy [id number]-[id number]-03 Liat Helekar, 0 (BEAKER) (test M.D. (electronic code = 2620) signature) CONTAINER BODY EDTA Tube FLUID (BEAKER) (test code = 2873) POCT-GLUCOSE [id number] 06:21:43 Test Item Value Reference Range Interpretation Comments POC-GLUCOSE METER 189 mg/dL 70-110 H : TESTED A T [facility] [address] (BEAKER) (test code [address], = 1538) [facility] [address]: Industrial Editor/Techni armando ID = [id number] for Rowan Sanchez COMPREHENSIVE METABOLIC [id number] 05:43:17 Test Item Value Reference Range Interpretation Comments TOTAL PROTEIN 7.0 gm/dL 6.0-8.5 Specimen sligh tly (BEAKER) (test hemolyzed code = 770) ALBUMIN (BEAKER) 2.9 g/dL 3.5-5.0 L Specimen sl ightly (test code = 1145) hemolyzed ALKALINE 77 U/L 30-115 PHOSPHATASE (BEAKER) (test code = 346) BILIRUBIN TOTAL 0.3 mg/dL 0.1-1.2 Specimen sli ghtly (BEAKER) (test hemolyzed code = 377) SODIUM (BEAKER) 135 meq/L 135-148 (test code = 381) POTASSIUM (BEAKER) 4.6 meq/L 3.6-5.5 Specimen slightly (test code = 379) hemolyzed CHLORIDE (BEAKER) 102 meq/L 98-106 (test code = 382) CO2 (BEAKER) (test 21 meq/L 20-29 code = 355) BLOOD UREA 28 mg/dL 10-26 H NITROGEN (BEAKER) (test code = 354) CREATININE 0.77 mg/dL 0.50-1.20 Specimen slight ly (BEAKER) (test hemolyzed code = 358) GLUCOSE RANDOM 227 mg/dL 70-110 H (BEAKER) (test code = 652) CALCIUM (BEAKER) 8.7 mg/dL 8.5-10.5 (test code = 697) AST (SGOT) 32 U/L 5-40 Specimen slight ly (BEAKER) (test hemolyzed code = 353) ALT (SGPT) 30 U/L 5-50 Specimen slight ly (BEAKER) (test hemolyzed code = 347) EGFR (BEAKER) 87 Interpretatio n of eGFR (test code = 1092) mL/min/1.[address] age Description sq m Result G1 Indigo l or high >=90 G2 Mildly decreased 60-89 G3a Mildl y to moderately 45-5 9 G3b Moderately to s everely 30-44 G4 Severl y decreased 15-29 G5 Kidney failure <15Reported eGF R is based on the CKD-EPI 2020 equation that d oes not use a race coefficientEsti mated GFR is not as accur ate as Creatinine Katty iam in predicting glom erular filtration rate . Estimated GFR is not appl icable for dialysis patien ts Industrial Editor ID - [id number] ID - [id number] ID - [id number] ID - [id number] ID - LTRXIEKZF787Zbeodpgo ID - XSDBHYMVK524Nzlrnjxy ID - [id number] ID - [id number] ID - JEHPRYFVM631Bscvunyi ID - [id number] ID - [id number] ID - [id number] ID - [id number] ID - [id number] ID - [id number] ID -[id number] 05:40:02 Test Item Value Reference Range Interpretation Comments MAGNESIUM (BEAKER) 2.0 mg/dL 1.5-3.0 Specimen slightly (test code = 627) hemolyzed Industrial Editor ID - [id number] ID - [id number] ID - [id number] ID - [id number] W/PLT COUNT & AUTO DIFFERENTIAL 2022-07-18 05:28:04 Test Item Value Reference Range Interpretation Comments WHITE BLOOD CELL COUNT (BEAKER) 13.2 K/ L 4.0-10.0 H (test code = 775) RED BLOOD CELL COUNT (BEAKER) 3.72 M/ L 4.00-5.00 L (test code = 761) HEMOGLOBIN (BEAKER) (test code = 8.4 GM/DL 12.0-15.5 L 410) HEMATOCRIT (BEAKER) (test code = 27.5 % 36.0-46.0 L 411) MEAN CORPUSCULAR VOLUME (BEAKER) 74 fL 82-99 L (test code = 753) MEAN CORPUSCULAR HEMOGLOBIN 22.6 pg 27.0-33.0 L (BEAKER) (test code = 751) MEAN CORPUSCULAR HEMOGLOBIN CONC 30.5 GM/DL 32.0-36.0 L (BEAKER) (test code = 752) RED CELL DISTRIBUTION WIDTH 18.7 % 12.0-15.0 H (BEAKER) (test code = 412) PLATELET COUNT (BEAKER) (test 397 K/CU MM 150-430 code = 756) MEAN PLATELET VOLUME (BEAKER) 8.7 fL 6.0-11.5 (test code = 754) NUCLEATED RED BLOOD CELLS 0 /100 WBC 0-0 (BEAKER) (test code = 413) NEUTROPHILS RELATIVE PERCENT 77 % (BEAKER) (test code = 429) LYMPHOCYTES RELATIVE PERCENT 15 % (BEAKER) (test code = 430) MONOCYTES RELATIVE PERCENT 7 % (BEAKER) (test code = 431) EOSINOPHILS RELATIVE PERCENT 0 % (BEAKER) (test code = 432) BASOPHILS RELATIVE PERCENT 0 % (BEAKER) (test code = 437) NEUTROPHILS ABSOLUTE COUNT 10.14 K/ L 1.80-8.00 H (BEAKER) (test code = 670) LYMPHOCYTES ABSOLUTE COUNT 1.98 K/ L 1.48-4.50 (BEAKER) (test code = 414) MONOCYTES ABSOLUTE COUNT (BEAKER) 0.87 K/ L 0.00-1.30 (test code = 415) EOSINOPHILS ABSOLUTE COUNT 0.03 K/ L 0.00-0.50 (BEAKER) (test code = 416) BASOPHILS ABSOLUTE COUNT (BEAKER) 0.01 K/ L 0.00-0.20 (test code = 417) IMMATURE GRANULOCYTES-RELATIVE 1.60 % 0.00-0.00 H PERCENT (BEAKER) (test code = 2801) POCT-GLUCOSE [id number] 20:36:39 Test Item Value Reference Range Interpretation Comments POC-GLUCOSE METER 147 mg/dL 70-110 H : TESTED A T [facility] (BEAKER) (test code [facility], = 1538) [place] [id number]: Industrial Editor/Techni armando ID = [id number] for Rowan Sanchez POCT-GLUCOSE [id number] 16:55:18 Test Item Value Reference Range Interpretation Comments POC-GLUCOSE METER 194 mg/dL 70-110 H : TESTED A T [facility] (BEAKER) ([facility], = 1538) [place] [address]: Industrial Editor/Techni armando ID = [id number] for Dorie Desai POCT-GLUCOSE [id number] 13:34:37 Test Item Value Reference Range Interpretation Comments POC-GLUCOSE METER 220 mg/dL 70-110 H : TESTED A T [facility] 1317 (WINDY) (test code [address], = 1538) [facility] [address]: Industrial Editor/Techni armando ID = [id number] for Dorie Desai U/S, [id number] 12:47:00Laterality?->LeftReason for exam:- >Left pleural effusiomShould this be performed at the bedside?->NoLabs to be Ordered:->Body Fluid Culture (w/Gram Stain, C\T\S)Labs to be Ordered:->CytologyLabs to be Ordered:->Glucose+LDH+ProteinLabs to be Ordered:->Cell Count [facility] : 1960 Sex: FFINAL REPORT HISTORY : Left Pleural Effusion Technique/findings:Informed written consentwas obtained. Discussion of risks, benefits, and alternatives were made with the patient. The patient expressed understanding and agreed to proceed. A universal timeout was performed prior to starting the procedure. Initial ultrasound images demonstrate small left pleural effusion. The posterior chestwall was marked. The area was prepped and draped in the usual sterile fashion. 1% lidocaine was applied to the skin and deep soft tissues. A 5 Macedonian one-step catheter was inserted and removed from thepleural space and approximately 300 cc of clear yellow fluid was aspirated from the chest. Specimenswere collected for laboratory evaluation. There were no immediate complications. A postprocedure chest radiograph was ordered. Impression: Successful ultrasound guided, left sided thoracentesis with aspiration of 300 cc of fluid. Signed: Ilya Cabello MDReport Verified Date/Time: 07/17/2022 12:47:03 Reading Location: [facility] Radiology Reading Room Lactate dehydrogenase (LDH), body fluid 2022-07-17 12:34:35 Test Item Value Reference Range Interpretation Comments LDH, Fluid (test 951 U/L code = 48712-7) SESAR (test code = Absence of reference SESAR) range indicates that normals have not been defined.Assay performance has not been validated for this type of specimen. Industrial Editor ID - LILIANA [facility] CenterLACTATE DEHYDROGENASE (LDH), BODY [id number] 12:34:35 Test Item Value Reference Range Interpretation Comments LACTATE DEHYDROGENASE FLUID (BEAKER) 951 U/L (test code = 634) Absence of reference range indicates that normals have not been defined.Assay performance has not been validated for this type of specimen.Industrial Editor ID - LILIANAProtein, body [id number] 12:31:14 Test Item Value Reference Range Interpretation Comments Protein, Fluid (test 4.7 g/dL code = 2881-1) SESAR (test code = Absence of reference SESAR) range indicates that normals have not been defined.Assay performance has not been validated for this type of specimen. Industrial Editor ID - LILIANA [facility] CenterPROTEIN, BODY [id number] 12:31:14 Test Item Value Reference Range Interpretation Comments PROTEIN FLUID (BEAKER) (test code = 4.7 g/dL 579) Absence of reference range indicates that normals have not been defined.Assay performance has not been validated for this type of specimen.Industrial Editor ID - LILIANAGlucose, body [id number] 12:30:53 Test Item Value Reference Range Interpretation Comments Glucose, Body Fluid 115 mg/dL (test code = 2344-0) SESAR (test code = Absence of reference SESAR) range indicates that normals have not been defined.Assay performance has not been validated for this type of specimen. Industrial Editor ID - LILIANA [facility] CenterGLUCOSE, BODY [id number] 12:30:53 Test Item Value Reference Range Interpretation Comments GLUCOSE, BODY FLUID (BEAKER) (test 115 mg/dL code = 1528) Absence of reference range indicates that normals have not been defined.Assay performance has not been validated for this type of specimen.Industrial Editor ID - MERLIN CHEST, 1 VIEW, NON [id number] 12:14:00Reason for exam:->POST THORACENTESISShould this be performed at the bedside?->Yes [facility] 1960 Sex: FFINAL REPORT INDICATION: POST THORACENTESIS COMPARISON: 07/13/2022 TECHNIQUE: Single frontal view of the chest. FINDINGS: Lungs and pleura: Small lucency at the left lung base, with trace basilar pneumothorax not entirely excluded. Decreased left effusion.Heart and mediastinum: Normal heartsize. Unremarkable mediastinal contours.Osseous structures: No acute abnormality.Other: None. IMPRESSION: Small lucency at the left lung base, with trace basilar pneumothorax not entirely excluded.Decreased left effusion. Signed: Mary Felix MDReport Verified Date/Time: 07/17/2022 12:14:37 Reading Location: [address] Reading Room Legionella antigen, [id number] 11:37:30 Test Item Value Reference Range Interpretation Comments Legionella Urine Negative - see Negative for L. Antigen (test code comment pneumophi la = 15685-7) serogroup 1 ant igen, suggesting no r ecent or current infe ction with this serog roup. Legionellosis c annot be ruled out si nce other serogroup s and species may cau se disease. [facility] CenterLEGIONELLA ANTIGEN, [id number] 11:37:30 Test Item Value Reference Range Interpretation Comments L. PNEUMOPHILA Negative - see Negative fo r L. SEROGP 1 UR AG comment pneumophila (BEAKER) (test code serogrou p 1 antigen, = 1156) suggesting no r ecent or current infe ction with this serog roup. Legionellosis c annot be ruled out si nce other serogroup s and species may cau se disease. Strep pneumoniae [id number] 11:36:53 Test Item Value Reference Range Interpretation Comments Strep pneumoniae Presumptive negative Presumptive Antigen (test code = [place] [address]-1) pneumonia - see pneumococcal comment pneumonia - see comment, Presumptive negative for pneumococcal meningitis - see comment SESAR (test code = SESAR) Presumptive negative for pneumococcal pneumonia, suggesting no current or recent pneumococcal infection. Infection due to S. pneumoniae cannot be ruled out since the antigen present in the sample may be below the detection limit of the test. Lab Interpretation Normal (test code = 05194-0) [facility] PNE[facility] [id number] 11:36:53 Test Item Value Reference Range Interpretation Comments STREP PNEUMONIAE Presumptive negative Presumptive negative ANTIGEN (BEAKER) for pneumococcal for pneumococcal (test code = 1615) pneumonia - see pneumonia - see comment commen Presumptive negative for pneumococcal pneumonia, suggesting no current or recent pneumococcal infection. Infection due to S. pneumoniae cannot be ruled out since the antigen present in the sample may be below the detection limit of the test. PROTHROMBIN TIME/[id number] 08:26:06 Test Item Value Reference Range Interpretation Comments PROTIME (BEAKER) 11.3 seconds 9.3-12.0 Final Infor mation (test code = 759) (Auto Outp ut) INR (BEAKER) (test 1.03 See_Comment Final Inf ormation code = 370) (Auto Output) [Automated mess age] The system [employer] generated this result transmitted ref erence range: <=5.90. The reference range was not used to int erpret this result as normal/abnormal . RECOMMENDED COUMADIN/WARFARIN INR THERAPY RANGESSTANDARD DOSE: 2.0 - 3.0 Includes: PROPHYLAXIS for venous thrombosis, systemic embolization; TREATMENT for venous thrombosis and/or pulmonary embolus.HIGH RISK: Target INR is 2.5-3.5 for patients with mechanical heart valves.[id number] 08:26:06 Test Item Value Reference Range Interpretation Comments PARTIAL THROMBOPLASTIN 27.9 seconds 23.0-35.0 Final Information TIME (BEAKER) (test (Auto Ou tput) code = 760) POCT-GLUCOSE [id number] 06:45:32 Test Item Value Reference Range Interpretation Comments POC-GLUCOSE METER 162 mg/dL 70-110 H : TESTED A T [facility] [address] (BEAKER) (test code [address], = 1538) [facility] [address]: Industrial Editor/Techni armando ID = [id number] for [facility] Juana matthews COMPREHENSIVE METABOLIC [id number] 05:46:11 Test Item Value Reference Range Interpretation Comments TOTAL PROTEIN 7.6 gm/dL 6.0-8.5 Specimen sligh tly (BEAKER) (test hemolyzed code = 770) ALBUMIN (BEAKER) 3.1 g/dL 3.5-5.0 L Specimen sl ightly (test code = 1145) hemolyzed ALKALINE 77 U/L 30-115 PHOSPHATASE (BEAKER) (test code = 346) BILIRUBIN TOTAL 0.4 mg/dL 0.1-1.2 Specimen sli ghtly (BEAKER) (test hemolyzed code = 377) SODIUM (BEAKER) 136 meq/L 135-148 (test code = 381) POTASSIUM (BEAKER) 4.7 meq/L 3.6-5.5 Specimen slightly (test code = 379) hemolyzed CHLORIDE (BEAKER) 101 meq/L 98-106 (test code = 382) CO2 (BEAKER) (test 22 meq/L 20-29 code = 355) BLOOD UREA 23 mg/dL 10-26 NITROGEN (BEAKER) (test code = 354) CREATININE 0.77 mg/dL 0.50-1.20 Specimen slight ly (BEAKER) (test hemolyzed code = 358) GLUCOSE RANDOM 183 mg/dL 70-110 H (BEAKER) (test code = 652) CALCIUM (BEAKER) 9.5 mg/dL 8.5-10.5 (test code = 697) AST (SGOT) 26 U/L 5-40 Specimen slight ly (BEAKER) (test hemolyzed code = 353) ALT (SGPT) 27 U/L 5-50 Specimen slight ly (BEAKER) (test hemolyzed code = 347) EGFR (BEAKER) 87 Interpretatio n of eGFR (test code = 1092) mL/min/1.[address] age Description sq m Result G1 Indigo l or high >=90 G2 Mildly decreased 60-89 G3a Mildl y to moderately 45-5 9 G3b Moderately to s everely 30-44 G4 Severl y decreased 15-29 G5 Kidney failure <15Reported eGF R is based on the CKD-EPI 2021 equation that d oes not use a race coefficientEsti mated GFR is not as accur ate as Creatinine Katty iam in predicting glom erular filtration rate . Estimated GFR is not appl icable for dialysis patien ts Industrial Editor ID - [id number] ID - VHOZ48Qrgwlgxn ID - OLYV12Xpjbcggj ID - KOZI89Tmnkwyrs ID - SMXD45Aokopsse ID - NLEV53Gclupicf ID - OKHS74Kxvshjna ID - GXZA04Fxdfanhu ID - KFXR79Keiqfrgi ID - BZKY84Nsdhgzft ID - TTUC43Oqdskpsi ID - HQMK35Lzzohmec ID - NSXL55Whigqnjh ID - ALNE63Pllqcned ID - ROTT14Zqzqramt ID - [id number] 05:45:47 Test Item Value Reference Range Interpretation Comments MAGNESIUM (BEAKER) 2.1 mg/dL 1.5-3.0 Specimen slightly (test code = 627) hemolyzed Industrial Editor ID - [id number] ID - [id number] ID - [id number] ID - [id number] CBC W/PLT COUNT & AUTO [id number] 05:28:01 Test Item Value Reference Range Interpretation Comments WHITE BLOOD CELL COUNT (BEAKER) 22.1 K/ L 4.0-10.0 H (test code = 775) RED BLOOD CELL COUNT (BEAKER) 3.89 M/ L 4.00-5.00 L (test code = 761) HEMOGLOBIN (BEAKER) (test code = 8.6 GM/DL 12.0-15.5 L 410) HEMATOCRIT (BEAKER) (test code = 29.2 % 36.0-46.0 L 411) MEAN CORPUSCULAR VOLUME (BEAKER) 75 fL 82-99 L (test code = 753) MEAN CORPUSCULAR HEMOGLOBIN 22.1 pg 27.0-33.0 L (BEAKER) (test code = 751) MEAN CORPUSCULAR HEMOGLOBIN CONC 29.5 GM/DL 32.0-36.0 L (BEAKER) (test code = 752) RED CELL DISTRIBUTION WIDTH 18.8 % 12.0-15.0 H (BEAKER) (test code = 412) PLATELET COUNT (BEAKER) (test 393 K/CU MM 150-430 code = 756) MEAN PLATELET VOLUME (BEAKER) 8.6 fL 6.0-11.5 (test code = 754) NUCLEATED RED BLOOD CELLS 0 /100 WBC 0-0 (BEAKER) (test code = 413) NEUTROPHILS RELATIVE PERCENT 79 % (BEAKER) (test code = 429) LYMPHOCYTES RELATIVE PERCENT 13 % (BEAKER) (test code = 430) MONOCYTES RELATIVE PERCENT 7 % (BEAKER) (test code = 431) EOSINOPHILS RELATIVE PERCENT 0 % (BEAKER) (test code = 432) BASOPHILS RELATIVE PERCENT 0 % (BEAKER) (test code = 437) NEUTROPHILS ABSOLUTE COUNT 17.51 K/ L 1.80-8.00 H (BEAKER) (test code = 670) LYMPHOCYTES ABSOLUTE COUNT 2.80 K/ L 1.48-4.50 (BEAKER) (test code = 414) MONOCYTES ABSOLUTE COUNT (BEAKER) 1.49 K/ L 0.00-1.30 H (test code = 415) EOSINOPHILS ABSOLUTE COUNT 0.01 K/ L 0.00-0.50 (BEAKER) (test code = 416) BASOPHILS ABSOLUTE COUNT (BEAKER) 0.03 K/ L 0.00-0.20 (test code = 417) IMMATURE GRANULOCYTES-RELATIVE 1.20 % 0.00-0.00 H PERCENT (BEAKER) (test code = 2801) POCT-GLUCOSE [id number] 21:11:58 Test Item Value Reference Range Interpretation Comments POC-GLUCOSE METER 108 mg/dL 70-110 : TESTED A T [facility] [address] (BEAKER) (test code [address], = 1538) [facility] [address]: Industrial Editor/Techni armando ID = [id number] for Juana Beverly POCT-GLUCOSE [id number] 21:11:57 Test Item Value Reference Range Interpretation Comments POC-GLUCOSE METER 213 mg/dL 70-110 H : TESTED A T [facility] [address] (BEAKER) (test code [address], = 1538) [place] [address]: Industrial Editor/Techni armando ID = [id number] for Viviane Lai POCT-GLUCOSE [id number] 12:42:15 Test Item Value Reference Range Interpretation Comments POC-GLUCOSE METER 215 mg/dL 70-110 H : TESTED A T [facility] [address] (BEAKER) (test code [address], = 1538) [place] [address]: Industrial Editor/Techni armando ID = [id number] for Viviane Lai POCT-GLUCOSE [id number] 09:18:05 Test Item Value Reference Range Interpretation Comments POC-GLUCOSE METER 160 mg/dL 70-110 H : TESTED A T [facility] [address] (BEAKER) (test code [address], = 1538) [place] [id number]: Industrial Editor/Techni armando ID = [id number] for Udjan , Jessenia POCT-GLUCOSE [id number] 05:29:54 Test Item Value Reference Range Interpretation Comments POC-GLUCOSE METER 194 mg/dL 70-110 H : TESTED A T [facility] [address] (BEAKER) (test code [address], = 1538) [place] [address]: Industrial Editor/Techni armando ID = [id number] for Leatha Huntley COMPREHENSIVE METABOLIC [id number] 04:20:43 Test Item Value Reference Range Interpretation Comments TOTAL PROTEIN 7.2 gm/dL 6.0-8.5 Specimen sligh tly (BEAKER) (test hemolyzed code = 770) ALBUMIN (BEAKER) 3.0 g/dL 3.5-5.0 L Specimen sl ightly (test code = 1145) hemolyzed ALKALINE 80 U/L 30-115 PHOSPHATASE (BEAKER) (test code = 346) BILIRUBIN TOTAL 0.4 mg/dL 0.1-1.2 Specimen sli ghtly (BEAKER) (test hemolyzed code = 377) SODIUM (BEAKER) 136 meq/L 135-148 (test code = 381) POTASSIUM (BEAKER) 4.1 meq/L 3.6-5.5 Specimen slightly (test code = 379) hemolyzed CHLORIDE (BEAKER) 103 meq/L 98-106 (test code = 382) CO2 (BEAKER) (test 20 meq/L 20-29 code = 355) BLOOD UREA 19 mg/dL 10-26 NITROGEN (BEAKER) (test code = 354) CREATININE 0.74 mg/dL 0.50-1.20 Specimen slight ly (BEAKER) (test hemolyzed code = 358) GLUCOSE RANDOM 201 mg/dL 70-110 H (BEAKER) (test code = 652) CALCIUM (BEAKER) 9.2 mg/dL 8.5-10.5 (test code = 697) AST (SGOT) 28 U/L 5-40 Specimen slight ly (BEAKER) (test hemolyzed code = 353) ALT (SGPT) 13 U/L 5-50 Specimen slight ly (BEAKER) (test hemolyzed code = 347) EGFR (BEAKER) 91 Interpretatio n of eGFR (test code = 1092) mL/min/1.[address] age Description sq m Result G1 Indigo l or high >=90 G2 Mildly decreased 60-89 G3a Mildl y to moderately 45-5 9 G3b Moderately to s everely 30-44 G4 Severl y decreased 15-29 G5 Kidney failure <15Reported eGF R is based on the CKD-EPI 1 equation that d oes not use a race coefficientEsti mated GFR is not as accur ate as Creatinine Katty vitale in predicting glom erular filtration rate . Estimated GFR is not appl icable for dialysis patien ts Industrial Editor ID - [id number] ID - [id number] ID - HFTLKDQRD385Dqxrhiat ID - GCQRIFPFY123Jdogvxzg ID - XBEAUDBDC929Mdchyvpp ID - HIZWFGZPP242Ferozanh ID - IQCCABEII022Uodkaypb ID - QFIAWAPFC269Odaiedae ID - RIJEXWUAP504Ratboaiy ID - [id number] ID - RYDKNHDHZ163Lrbalfht ID - IGYUEOWOD901Wgowuxxd ID - LHLWGURWU551Akfyyqqq ID - UHZDSDALV863Yisqpalr ID - OFITFEPEE449Qesnuuuj ID -[id number] 04:20:20 Test Item Value Reference Range Interpretation Comments MAGNESIUM (BEAKER) 2.0 mg/dL 1.5-3.0 Specimen slightly (test code = 627) hemolyzed Industrial Editor ID - [id number] ID - LGBVTOOOZ907Cpuybeqq ID - UCMMGGVUW603Afytpjle ID - [id number] W/PLT COUNT & AUTO DIFFERENTIAL 2022-07-16 04:01:45 Test Item Value Reference Range Interpretation Comments WHITE BLOOD CELL COUNT (BEAKER) 20.6 K/ L 4.0-10.0 H (test code = 775) RED BLOOD CELL COUNT (BEAKER) 3.67 M/ L 4.00-5.00 L (test code = 761) HEMOGLOBIN (BEAKER) (test code = 8.1 GM/DL 12.0-15.5 L 410) HEMATOCRIT (BEAKER) (test code = 27.3 % 36.0-46.0 L 411) MEAN CORPUSCULAR VOLUME (BEAKER) 74 fL 82-99 L (test code = 753) MEAN CORPUSCULAR HEMOGLOBIN 22.1 pg 27.0-33.0 L (BEAKER) (test code = 751) MEAN CORPUSCULAR HEMOGLOBIN CONC 29.7 GM/DL 32.0-36.0 L (BEAKER) (test code = 752) RED CELL DISTRIBUTION WIDTH 18.6 % 12.0-15.0 H (BEAKER) (test code = 412) PLATELET COUNT (BEAKER) (test 372 K/CU MM 150-430 code = 756) MEAN PLATELET VOLUME (BEAKER) 8.3 fL 6.0-11.5 (test code = 754) NUCLEATED RED BLOOD CELLS 0 /100 WBC 0-0 (BEAKER) (test code = 413) NEUTROPHILS RELATIVE PERCENT 88 % (BEAKER) (test code = 429) LYMPHOCYTES RELATIVE PERCENT 6 % (BEAKER) (test code = 430) MONOCYTES RELATIVE PERCENT 5 % (BEAKER) (test code = 431) EOSINOPHILS RELATIVE PERCENT 0 % (BEAKER) (test code = 432) BASOPHILS RELATIVE PERCENT 0 % (BEAKER) (test code = 437) NEUTROPHILS ABSOLUTE COUNT 18.19 K/ L 1.80-8.00 H (BEAKER) (test code = 670) LYMPHOCYTES ABSOLUTE COUNT 1.22 K/ L 1.48-4.50 L (BEAKER) (test code = 414) MONOCYTES ABSOLUTE COUNT (BEAKER) 0.96 K/ L 0.00-1.30 (test code = 415) EOSINOPHILS ABSOLUTE COUNT 0.00 K/ L 0.00-0.50 (BEAKER) (test code = 416) BASOPHILS ABSOLUTE COUNT (BEAKER) 0.02 K/ L 0.00-0.20 (test code = 417) IMMATURE GRANULOCYTES-RELATIVE 0.90 % 0.00-0.00 H PERCENT (BEAKER) (test code = 2801) POCT-GLUCOSE [id number] 18:58:18 Test Item Value Reference Range Interpretation Comments POC-GLUCOSE METER 233 mg/dL 70-110 H : TESTED A T [facility] (test code [facility], = 1538) [place] [address]: Industrial Editor/Techni armando ID = [id number] for Udoh , Jessenia POCT-GLUCOSE [id number] 17:08:34 Test Item Value Reference Range Interpretation Comments POC-GLUCOSE METER 266 mg/dL 70-110 H : TESTED A T [facility] 1317 ([facility]) (test code [facility], = 1538) [place] [address]: Industrial Editor/Techni armando ID = [id number] for Udoh , Jessenia POCT-GLUCOSE [id number] 11:53:30 Test Item Value Reference Range Interpretation Comments POC-GLUCOSE METER 191 mg/dL 70-110 H : TESTED A T [facility] 1317 ([facility]) (test code [facility], = 1538) [place] [address]: Industrial Editor/Techni armando ID = [id number] for Alessia Urrutia POCT-GLUCOSE [id number] 11:53:02 Test Item Value Reference Range Interpretation Comments POC-GLUCOSE METER 188 mg/dL 70-110 H : Notified RN/MD: TESTED ([facility]) (test code AT [facility] [address] = 1538) [place] [address]: Industrial Editor/Techni armando ID = [id number] for Jay moser [facility] METABOLIC [id number] 05:09:30 Test Item Value Reference Range Interpretation Comments TOTAL PROTEIN 6.8 gm/dL 6.0-8.5 (BEAKER) (test code = 770) ALBUMIN (BEAKER) 3.0 g/dL 3.5-5.0 L (test code = 1145) ALKALINE 83 U/L 30-115 PHOSPHATASE (BEAKER) (test code = 346) BILIRUBIN TOTAL 0.3 mg/dL 0.1-1.2 (BEAKER) (test code = 377) SODIUM (BEAKER) 134 meq/L 135-148 L (test code = 381) POTASSIUM (BEAKER) 4.0 meq/L 3.6-5.5 (test code = 379) CHLORIDE (BEAKER) 104 meq/L 98-106 (test code = 382) CO2 (BEAKER) (test 19 meq/L 20-29 L code = 355) BLOOD UREA 17 mg/dL 10-26 NITROGEN (BEAKER) (test code = 354) CREATININE 0.77 mg/dL 0.50-1.20 (BEAKER) (test code = 358) GLUCOSE RANDOM 213 mg/dL 70-110 H (BEAKER) (test code = 652) CALCIUM (BEAKER) 9.0 mg/dL 8.5-10.5 (test code = 697) AST (SGOT) 13 U/L 5-40 (BEAKER) (test code = 353) ALT (SGPT) 11 U/L 5-50 (BEAKER) (test code = 347) EGFR (BEAKER) 87 Interpretatio n of eGFR (test code = 1092) mL/min/1.[address] age Description sq m Result G1 Indigo l or high >=90 G2 Mildly decreased 60-89 G3a Mildl y to moderately 45-5 9 G3b Moderately to s everely 30-44 G4 Severl y decreased 15-29 G5 Kidney failure <15Reported eGF R is based on the CKD-EPI 2021 equation that d oes not use a race coefficientEsti mated GFR is not as accur ate as Creatinine Katty iam in predicting glom erular filtration rate . Estimated GFR is not appl icable for dialysis patien ts Industrial Editor ID - LITOOperator ID - LITOOperator ID - LITOOperator ID - LITOOperator ID - LITOOperator ID - LITOOperator ID - LITOOperator ID - LITOOperator ID - LITOOperator ID - LITOOperator ID - LITOOperator ID - LITOOperator ID - LITOOperator ID - LITOOperator ID - LITOOperator ID - [id number] 05:01:33 Test Item Value Reference Range Interpretation Comments MAGNESIUM (BEAKER) (test code = 2.0 mg/dL 1.5-3.0 627) Industrial Editor ID - LITOOperator ID - LITOOperator ID - LITOOperator ID - LITOCBC W/PLT COUNT & AUTO [id number] 04:45:15 Test Item Value Reference Range Interpretation Comments WHITE BLOOD CELL COUNT (BEAKER) 16.4 K/ L 4.0-10.0 H (test code = 775) RED BLOOD CELL COUNT (BEAKER) 3.73 M/ L 4.00-5.00 L (test code = 761) HEMOGLOBIN (BEAKER) (test code = 8.4 GM/DL 12.0-15.5 L 410) HEMATOCRIT (BEAKER) (test code = 27.9 % 36.0-46.0 L 411) MEAN CORPUSCULAR VOLUME (BEAKER) 75 fL 82-99 L (test code = 753) MEAN CORPUSCULAR HEMOGLOBIN 22.5 pg 27.0-33.0 L (BEAKER) (test code = 751) MEAN CORPUSCULAR HEMOGLOBIN CONC 30.1 GM/DL 32.0-36.0 L (BEAKER) (test code = 752) RED CELL DISTRIBUTION WIDTH 18.5 % 12.0-15.0 H (BEAKER) (test code = 412) PLATELET COUNT (BEAKER) (test 299 K/CU MM 150-430 code = 756) MEAN PLATELET VOLUME (BEAKER) 8.6 fL 6.0-11.5 (test code = 754) NUCLEATED RED BLOOD CELLS 0 /100 WBC 0-0 (BEAKER) (test code = 413) NEUTROPHILS RELATIVE PERCENT 91 % (BEAKER) (test code = 429) LYMPHOCYTES RELATIVE PERCENT 5 % (BEAKER) (test code = 430) MONOCYTES RELATIVE PERCENT 3 % (BEAKER) (test code = 431) EOSINOPHILS RELATIVE PERCENT 0 % (BEAKER) (test code = 432) BASOPHILS RELATIVE PERCENT 0 % (BEAKER) (test code = 437) NEUTROPHILS ABSOLUTE COUNT 14.95 K/ L 1.80-8.00 H (BEAKER) (test code = 670) LYMPHOCYTES ABSOLUTE COUNT 0.86 K/ L 1.48-4.50 L (BEAKER) (test code = 414) MONOCYTES ABSOLUTE COUNT (BEAKER) 0.42 K/ L 0.00-1.30 (test code = 415) EOSINOPHILS ABSOLUTE COUNT 0.00 K/ L 0.00-0.50 (BEAKER) (test code = 416) BASOPHILS ABSOLUTE COUNT (BEAKER) 0.03 K/ L 0.00-0.20 (test code = 417) IMMATURE GRANULOCYTES-RELATIVE 0.80 % 0.00-0.00 H PERCENT (BEAKER) (test code = 2801) POCT-GLUCOSE [id number] 20:53:56 Test Item Value Reference Range Interpretation Comments POC-GLUCOSE METER 91 mg/dL 70-110 : Notified RN/MD: TESTED (BEAKER) (test code = [address]) [facility] [address]: Industrial Editor/Techni armando ID = [id number] for Nandini Chavez POCT-GLUCOSE [id number] 16:33:01 Test Item Value Reference Range Interpretation Comments POC-GLUCOSE METER 147 mg/dL 70-110 H : TESTED A T [facility] [address] (BEAKER) (test code [address] [facility], = 1538) [facility] [address]: Industrial Editor/Techni armando ID = [id number] for Alessia Urrutia CT, CHEST, WITHOUT [id number] 13:23:00Unlisted Reason for Exam - Click Yes and Enter Reason Below->No [facility] CENTERName: MELISA IRELAND : 1960 Sex: FFINAL REPORT EXAM: CT Chest WITHOUT intravenous contrast 07/14/2022 1:09 PMINDICATION: Shortness of breathCOMPARISON: NoneTECHNIQUE:Chest was scanned utilizing a multidetector helical scanner from the lung apex through the level of the adrenal glands without administration of IV contrast. Coronal and sagittal reformations were obtained. Routine protocol was performed. IV CONTRAST: NoneRADIATION DOSE: Total DLP: 469 mGy*cm. Dose modulation, iterative reconstruction, and/or weight based adjustment of the mA/kV was utilized to reduce the radiation dose to as low as reasonably achievable. COMPLICATIONS: None FINDINGS: LINES/ TUBES: None. LUNGS, PLEURA AND AIRWAYS: Moderate to large left loculated appearing effusion, with near complete collapse of the left lower lobe and partial atelectasisof the left upper lobe. Airways are normal. Right lower lobe 8 mm calcified granuloma, no imaging follow-up is recommended. Right base mild subsegmental atelectasis versus scarring. HEART AND MEDIASTINUM: The thyroid gland is normal. More numerous than expected mediastinal lymph nodes measuring up to 1 cm in the pretracheal station. Right hilar calcified lymph nodes are noted The heart is normal in size. Trace pericardial effusion is noted. Mild aortic atherosclerosis. UPPER ABDOMEN: Broad superior abdominal ventral hernia. Pancreas displays fatty atrophy. Status post cholecystectomy. BONES: Degenerative changes seen throughout the visualized spine. SOFT TISSUES: Unremarkable. IMPRESSION: 1.Moderate to large left loculated appearing effusion, with near complete collapse of the left lower lobe andpartial atelectasis of the left upper lobe. More numerous than expected mediastinal nodes measuring up to 1 cm in the pretracheal station. Underlying pulmonary lesion not ruled out. Recommend repeat imaging after management of effusion.2.Right basilar mild subsegmental versus scarring.3.Right lower lobe 8 mm calcified granuloma, no imaging follow-up is recommended. Signed: Miguel Webb Verified Date/Time: 07/14/2022 13:23:25 Reading Location: [facility] [facility] Rad[facility] Reading [facility] POCT-GLUCOSE [id number] 11:57:12 Test Item Value Reference Range Interpretation Comments POC-GLUCOSE METER 142 mg/dL 70-110 H : TESTED A T SLSL 1317 (BEAKER) (test code [address], = 1538) [facility] 77 478: Industrial Editor/Techni armando ID = [id number] for Alessia Urrutia Urinalysis w/ [id number] 05:12:05 Test Item Value Reference Range Interpretation Comments Color, UA (test code = Yellow 5778-6) Clarity, UA (test code = Clear 5767-9) Specific [place], UA 1.025 1.001-1.035 (test code = 5811-5) pH, UA (test code = 6.0 5.0-8.0 5803-2) Protein, UA (test code = 30 mg/dL Negative A 77897-5) Glucose, UA (test code = 100 mg/dL Negative A 365) Ketones, UA (test code = 15 mg/dL Negative A 2514-8) Bilirubin, UA (test code Negative Negative = 16087-3) Blood, UA (test code = Small Negative A 84657-8) Nitrite, UA (test code = Negative Negative 5802-4) Leukocytes, UA (test Trace Negative A code = 5799-2) Urobilinogen, UA (test 0.2 code = 82883-0) Bacteria, UA (test code Few = 69510-5) RBC, UA (test code = <5 See_Comment [Autom ated message] 799-7) The system [employer] generated this result transmit darrian reference range : /HPF. The refer ence range was not u sed to interpret th is result as normal/abnormal . WBC, UA (test code = <5 See_Comment [Autom ated message] 08586-3) The system [employer] generated this result transmit darrian reference range : /HPF. The refer ence range was not u sed to interpret th is result as normal/abnormal . SQUAMOUS EPITHELIAL <5 See_Comment [Automa darrian message] (test code = 67683-5) The sy stem which generated this result transmit darrian reference range : /HPF. The refer ence range was not u sed to interpret th is result as normal/abnormal . Specimen Source (test code = 2795) Lab Interpretation (test Abnormal code = 56750-0) [facility] [id number] 05:12:05 Test Item Value Reference Range Interpretation Comments COLOR (BEAKER) (test code = 470) Yellow CLARITY (BEAKER) (test code = 469) Clear SPECIFIC GRAVITY UA (BEAKER) (test 1.025 1.001-1.035 code = 468) PH UA (BEAKER) (test code = 467) 6.0 5.0-8.0 PROTEIN UA (BEAKER) (test code = 30 mg/dL Negative A 464) GLUCOSE UA (BEAKER) (test code = 100 mg/dL Negative A 365) KETONES UA (BEAKER) (test code = 15 mg/dL Negative A 371) BILIRUBIN UA (BEAKER) (test code = Negative Negative 462) BLOOD UA (BEAKER) (test code = 461) Small Negative A NITRITE UA (BEAKER) (test code = Negative Negative 465) LEUKOCYTE ESTERASE UA (BEAKER) Trace Negative A (test code = 466) UROBILINOGEN UA (BEAKER) (test code 0.2 = 463) BACTERIA (BEAKER) (test code = 517) Few RBC UA-MANUAL (BEAKER) (test code = <5 /HPF 1659) WBC UA-MANUAL (BEAKER) (test code = <5 /HPF 1661) SQUAMOUS EPITHELIAL MANUAL (BEAKER) <5 /HPF (test code = 1663) SOURCE(BEAKER) (test code = 9305) COMPREHENSIVE METABOLIC [id number] 05:12:02 Test Item Value Reference Range Interpretation Comments TOTAL PROTEIN 7.4 gm/dL 6.0-8.5 (BEAKER) (test code = 770) ALBUMIN (BEAKER) 3.3 g/dL 3.5-5.0 L (test code = 1145) ALKALINE 90 U/L 30-115 PHOSPHATASE (BEAKER) (test code = 346) BILIRUBIN TOTAL 0.5 mg/dL 0.1-1.2 (BEAKER) (test code = 377) SODIUM (BEAKER) 135 meq/L 135-148 (test code = 381) POTASSIUM (BEAKER) 3.8 meq/L 3.6-5.5 (test code = 379) CHLORIDE (BEAKER) 103 meq/L 98-106 (test code = 382) CO2 (BEAKER) (test 22 meq/L 20-29 code = 355) BLOOD UREA 19 mg/dL 10-26 NITROGEN (BEAKER) (test code = 354) CREATININE 0.83 mg/dL 0.50-1.20 (BEAKER) (test code = 358) GLUCOSE RANDOM 170 mg/dL 70-110 H (BEAKER) (test code = 652) CALCIUM (BEAKER) 9.0 mg/dL 8.5-10.5 (test code = 697) AST (SGOT) 9 U/L 5-40 (BEAKER) (test code = 353) ALT (SGPT) 9 U/L 5-50 (BEAKER) (test code = 347) EGFR (BEAKER) 79 Interpretatio n of eGFR (test code = 1092) mL/min/1.[address] age Description sq m Result G1 Indigo l or high >=90 G2 Mildly decreased 60-89 G3a Mildl y to moderately 45-5 9 G3b Moderately to s everely 30-44 G4 Severl y decreased 15-29 G5 Kidney failure <15Reported eGF R is based on the CKD-EPI 2021 equation that d oes not use a race coefficientEsti mated GFR is not as accur ate as Creatinine Katty vitale in predicting glom erular filtration rate . Estimated GFR is not appl icable for dialysis patien ts Industrial Editor ID - [id number] ID - [id number] ID - [id number] ID - [id number] ID - [id number] ID - [id number] ID - [id number] ID - [id number] ID - [id number] ID - [id number] ID - [id number] ID - [id number] ID - [id number] ID - [id number] ID - [id number] ID - [id number] 05:12:00 Test Item Value Reference Range Interpretation Comments MAGNESIUM (BEAKER) (test code = 1.9 mg/dL 1.5-3.0 627) Industrial Editor ID - [id number] ID - [id number] ID - [id number] ID - [id number] W/PLT COUNT & AUTO [id number] 05:06:30 Test Item Value Reference Range Interpretation Comments WHITE BLOOD CELL COUNT (BEAKER) 20.7 K/ L 4.0-10.0 H (test code = 775) RED BLOOD CELL COUNT (BEAKER) 4.00 M/ L 4.00-5.00 (test code = 761) HEMOGLOBIN (BEAKER) (test code = 9.1 GM/DL 12.0-15.5 L 410) HEMATOCRIT (BEAKER) (test code = 30.3 % 36.0-46.0 L 411) MEAN CORPUSCULAR VOLUME (BEAKER) 76 fL 82-99 L (test code = 753) MEAN CORPUSCULAR HEMOGLOBIN 22.8 pg 27.0-33.0 L (BEAKER) (test code = 751) MEAN CORPUSCULAR HEMOGLOBIN CONC 30.0 GM/DL 32.0-36.0 L (BEAKER) (test code = 752) RED CELL DISTRIBUTION WIDTH 18.6 % 12.0-15.0 H (BEAKER) (test code = 412) PLATELET COUNT (BEAKER) (test 300 K/CU MM 150-430 code = 756) MEAN PLATELET VOLUME (BEAKER) 8.4 fL 6.0-11.5 (test code = 754) NUCLEATED RED BLOOD CELLS 0 /100 WBC 0-0 (BEAKER) (test code = 413) NEUTROPHILS RELATIVE PERCENT 75 % (BEAKER) (test code = 429) LYMPHOCYTES RELATIVE PERCENT 16 % (BEAKER) (test code = 430) MONOCYTES RELATIVE PERCENT 6 % (BEAKER) (test code = 431) EOSINOPHILS RELATIVE PERCENT 2 % (BEAKER) (test code = 432) BASOPHILS RELATIVE PERCENT 0 % (BEAKER) (test code = 437) NEUTROPHILS ABSOLUTE COUNT 15.61 K/ L 1.80-8.00 H (BEAKER) (test code = 670) LYMPHOCYTES ABSOLUTE COUNT 3.39 K/ L 1.48-4.50 (BEAKER) (test code = 414) MONOCYTES ABSOLUTE COUNT (BEAKER) 1.18 K/ L 0.00-1.30 (test code = 415) EOSINOPHILS ABSOLUTE COUNT 0.36 K/ L 0.00-0.50 (BEAKER) (test code = 416) BASOPHILS ABSOLUTE COUNT (BEAKER) 0.08 K/ L 0.00-0.20 (test code = 417) IMMATURE GRANULOCYTES-RELATIVE 0.60 % 0.00-0.00 H PERCENT (BEAKER) (test code = 2801) SARS-CoV2/Influenza/RSV RT-PCR (Symptomatic ONLY)2022-07-13 22:48:40 Test Item Value Reference Interpretation Comments Range SARS-COV2/RT-PCR Negative Negative The SARS-Co V-2 (test code = target nucleic 69072-2) acids are not detected in thi s specimen. Negat serge results do not preclude SARS-C oV-2 infection and should not be u sed as the sole bas is for patient management decisions. Nega tive results must be combined with clinical observations, patient history , and epidemiolog ical information. A false negative result may occu r if a specimen is improperly collected, transported or handled. This S ARS CoV-2 test is a rapid, real-sada e RT-PCR test intended for th e qualitative detection of nucleic acid fr om SARS-CoV-2 in a nasopharyngeal swab specimen collec darrian from individual s suspected of COVID-19 by the ir healthcare provider. Influenza A RT-PCR Negative Negative The Flu A target (test code = [place] 44314-2) not detected in this specimen. Influenza B RT-PCR Negative Negative The Flu B target (test code = [place] 73482-9) not detected in this specimen. RSV by RT-PCR (test Negative Negative The RSV target code = 90308-6) nucleic acid s are not detected in this specimen. SESAR (test code = The presence of SESAR) SARS-CoV-2/FLU/RSV viral nucleic acids cannot rule out co-infections or disease caused by other viral or bacterial pathogens. As with any molecular test, mutations within the target regions of the Xpert Xpress SARS-CoV-2/Flu/RSV test could affect primer and/or probe binding resulting in failure to detect the presence of virus or the virus being detected less predictably. False negative results may occur if the virus is present at levels below the analytical limit of detection in this specimen. This Xpert Xpress SARS-CoV-2/Flu/RSV test is a rapid, real-time RT-PCR test intended for the qualitative detection of nucleic acid from Xpert Xpress SARS-CoV-2/Flu/RSV in a nasopharyngeal swab specimen collected from individuals suspected of Xpert Xpress SARS-CoV-2/Flu/RSV by their healthcare provider. Results from [facility] Xpert Xpress SARS-CoV-2/Flu/RSV test should be correlated with the clinical history, epidemiological data, and other data available to the clinician evaluating the patient. Viral nucleic acid may persist in vivo, independent of virus viability. Detection of analyte target(s) does not imply that the corresponding virus(es) are infectious or are the causative agents for clinical symptoms. This test has not been Food and Drug Administration (FDA) cleared or approved and has been authorized by FDA under an Emergency Use Authorization (EUA). This EUA will be effective until the declaration that circumstances exist justifying the authorization of the emergency use of in vitro diagnostic tests for detection and/or diagnosis of COVID-19 is terminated under Section 564(b)(2) of the Act or the EUA is revoked under Section 564(g) of the Act. Fact Sheet for Healthcare Providers:https://w [employer]/Docu ments/Xpert%20Xpres s%20SARS%20CoV-2/Fa ct%20Sheets/302-390 2%33OKEH-OTR-5%20HE ALTHCARE%20PROVIDER S%20FACT%20SHEET.pd f Fact Sheet for Healthcare Patients:https://elbert beSUCCESS/Docum ents/Xpert%20Xpress %20SARS%20Cov-2/Fac t%20Sheets/302-3801 %97JFHS-KVW-3%20PAT IENT%20FACT%20SHEET .pdf Lab Interpretation Normal (test code = 97120-4) [facility] [id number] 22:48:40 Test Item Value Reference Range Interpretation Comments SARS-COV2/RT-PCR Negative Negative The SARS-Co V-2 target (test code = nucleic acids a re not 6032907) detected in thi s specimen. Nega tive results do not preclude SARS-CoV-2 infe ction and should not be u sed as the sole basis for patient management deci sions. Negative result s must be combined with c linical observations, p atient history, and epidemiological information. A false negative result may occur if a specimen i s improperly nasim ected, transported or handled. This SARS CoV-2 test is a rapid, real-sada e RT-PCR test intended f or the qualitative det ection of nucleic acid fr om SARS-CoV-2 in a nasopharyngeal swab specimen collec darrian from individuals maite pected of COVID-19 by the [facility]. INFLUENZA A RT-PCR Negative Negative The Flu A target nucleic (test code = acids are not d etected in 19101014) this specimen. INFLUENZA B RT-PCR Negative Negative The Flu B target nucleic (test code = acids are not d etected in 19101015) this specimen. RSV RT-PCR (test Negative Negative The RSV tar get nucleic code = 19101016) acids are no t detected in this specimen. The presence of SARS-CoV-2/FLU/RSV viral nucleic acids cannot rule out co- infections or disease caused by other viral or bacterial pathogens. As with any molecular test, mutations within the target regions of the Xpert Xpress SARS-CoV-2/Flu/RSV test could affect primer and/or probe binding resulting in failure to detect the presence of virus or the virus being detected less predictably. False negative results may occur if the virus is present at levels below the analytical limit of detection in thisspecimen.This Xpert Xpress SARS-CoV-2/Flu/RSV test is a rapid, real-time RT-PCR test intended for the qualitative detection of nucleic acid from Xpert Xpress SARS-CoV-2/Flu/RSV in a nasopharyngeal swabspecimen collected from individuals suspected of Xpert Xpress SARS-CoV-2/Flu/RSV by their healthcareprovider. Results from [facility] Xpert Xpress SARS-CoV-2/Flu/RSV test should be correlated with the clinical history, epidemiological data, and other data available to the clinician evaluating the patient. Viral nucleic acid may persist in vivo, independent of virus viability. Detection of analyte target(s)does not imply that the corresponding virus(es) are infectious or are the causative agents for clinical symptoms.This test has not been Food and Drug Administration (FDA) cleared or approved and has been authorized by FDA under an Emergency Use Authorization (EUA). This EUA will be effective until thedeclaration that circumstances exist justifying the authorization of the emergency use of in vitro diagnostic tests for detection and/or diagnosis of COVID-19 is terminated under Section 564(b)(2) of the Act or the EUA is revoked under Section 564(g) of the Act.Fact Sheet for Healthcare Providers:https ://www.[employer]/Documents/Xpert%20Xpress%20SARS%20CoV-2/Fact%20Sheets/302-390 2%06RRPY-ALE-2%20HEALTHCARE%20PROVIDERS%20FACT%20SHEET.pdfFact Sheet for Healthcare Patients:https://www.[employer]/Docum ents/Xpert%20Xpress%20SARS%20Cov-2/Fact%20Sheets/302-3801%41ZOWU-UVL-6%20PATIENT %20FACT%20SHEET.pdfRAD, CHEST, 1 VIEW, NON [id number] 22:44:00Reason for exam:->PNEUMONIAShould this be performed at the bedside?->Yes [facility] 1960 Sex: FFINAL REPORT INDICATION: PNEUMONIA COMPARISON: None TECHNIQUE: Single frontal view of the chest. IMPRESSION: Lungs and pleura: No airspace consolidation. No effusion. Heart and mediastinum:Cardiomediastinal silhouette is magnified by technique with otherwise unremarkable contours. Osseous structures: No acute abnormality. Other: None. Signed: Gayatri Virgen Verified Date/Time: 07/13/2022 22:44:31 [id number] 22:27:42 Test Item Value Reference Range Interpretation Comments MAGNESIUM (BEAKER) (test code = 1.8 mg/dL 1.5-3.0 627) Industrial Editor ID - TCAMACHOLIPID [id number] 22:27:18 Test Item Value Reference Range Interpretation Comments TRIGLYCERIDES (BEAKER) (test code = 76 mg/dL 540) CHOLESTEROL (BEAKER) (test code = 125 mg/dL 631) HDL CHOLESTEROL (BEAKER) (test code 53 mg/dL = 976) LDL CHOLESTEROL CALCULATED (BEAKER) 57 mg/dL (test code = 633) Triglyceride Reference Range: Low Risk <150 Borderline 150-199 High Risk 200- 499 Very High Risk >=500Cholesterol Reference Range: Low Risk <200 Borderline 200-239 High Risk >240HDL Cholesterol Reference Range: Low Risk >=60 High Risk <40LDL Cholesterol Reference Range: Optimal <100 Near Optimal 100-129 Borderline 130-159 High 160-189 Very High >=190 Industrial Editor ID - TCAMACHOOperator ID - TCAMACHOOperator ID - TCAMACHOCOMPREHENSIVE METABOLIC [id number] 22:26:30 Test Item Value Reference Range Interpretation Comments TOTAL PROTEIN 7.2 gm/dL 6.0-8.5 (BEAKER) (test code = 770) ALBUMIN (BEAKER) 3.3 g/dL 3.5-5.0 L (test code = 1145) ALKALINE 91 U/L 30-115 PHOSPHATASE (BEAKER) (test code = 346) BILIRUBIN TOTAL 0.5 mg/dL 0.1-1.2 (BEAKER) (test code = 377) SODIUM (BEAKER) 134 meq/L 135-148 L (test code = 381) POTASSIUM (BEAKER) 4.0 meq/L 3.6-5.5 (test code = 379) CHLORIDE (BEAKER) 105 meq/L 98-106 (test code = 382) CO2 (BEAKER) (test 19 meq/L 20-29 L code = 355) BLOOD UREA 20 mg/dL 10-26 NITROGEN (BEAKER) (test code = 354) CREATININE 0.83 mg/dL 0.50-1.20 (BEAKER) (test code = 358) GLUCOSE RANDOM 172 mg/dL 70-110 H (BEAKER) (test code = 652) CALCIUM (BEAKER) 8.7 mg/dL 8.5-10.5 (test code = 697) AST (SGOT) 11 U/L 5-40 (BEAKER) (test code = 353) ALT (SGPT) 10 U/L 5-50 (BEAKER) (test code = 347) EGFR (BEAKER) 79 Interpretatio n of eGFR (test code = 1092) mL/min/1.[address] age Description sq m Result G1 Indigo l or high >=90 G2 Mildly decreased 60-89 G3a Mildl y to moderately 45-5 9 G3b Moderately to s everely 30-44 G4 Severl y decreased 15-29 G5 Kidney failure <15Reported eGF R is based on the CKD-EPI 2020 equation that d oes not use a race coefficientEsti mated GFR is not as accur ate as Creatinine Katty iam in predicting glom erular filtration rate . Estimated GFR is not appl icable for dialysis patien ts Industrial Editor ID - TCAMACHOOperator ID - TCAMACHOOperator ID - TCAMACHOOperator ID - TCAMACHOOperator ID - TCAMACHOOperator ID - TCAMACHOOperator ID - TCAMACHOOperator ID - TCAMACHOOperator ID - TCAMACHOOperator ID - TCAMACHOOperator ID - TCAMACHOOperator ID - TCAMACHOOperator ID - TCAMACHOOperator ID - TCAMACHOOperator ID - TCAMACHOOperator ID - TCAMACHO HEMOGLOBIN [id number] 22:20:50 Test Item Value Reference Range Interpretation Comments HEMOGLOBIN A1C (BEAKER) (test code = 7.4 % 4.3-6.1 H 368) Industrial Editor ID - [id number] W/PLT COUNT & AUTO [id number] 22:10:11 Test Item Value Reference Range Interpretation Comments WHITE BLOOD CELL COUNT (BEAKER) 19.4 K/ L 4.0-10.0 H (test code = 775) RED BLOOD CELL COUNT (BEAKER) 3.90 M/ L 4.00-5.00 L (test code = 761) HEMOGLOBIN (BEAKER) (test code = 8.8 GM/DL 12.0-15.5 L 410) HEMATOCRIT (BEAKER) (test code = 29.5 % 36.0-46.0 L 411) MEAN CORPUSCULAR VOLUME (BEAKER) 76 fL 82-99 L (test code = 753) MEAN CORPUSCULAR HEMOGLOBIN 22.6 pg 27.0-33.0 L (BEAKER) (test code = 751) MEAN CORPUSCULAR HEMOGLOBIN CONC 29.8 GM/DL 32.0-36.0 L (BEAKER) (test code = 752) RED CELL DISTRIBUTION WIDTH 18.9 % 12.0-15.0 H (BEAKER) (test code = 412) PLATELET COUNT (BEAKER) (test 325 K/CU MM 150-430 code = 756) MEAN PLATELET VOLUME (BEAKER) 9.2 fL 6.0-11.5 (test code = 754) NUCLEATED RED BLOOD CELLS 0 /100 WBC 0-0 (BEAKER) (test code = 413) NEUTROPHILS RELATIVE PERCENT 80 % (BEAKER) (test code = 429) LYMPHOCYTES RELATIVE PERCENT 11 % (BEAKER) (test code = 430) MONOCYTES RELATIVE PERCENT 6 % (BEAKER) (test code = 431) EOSINOPHILS RELATIVE PERCENT 1 % (BEAKER) (test code = 432) BASOPHILS RELATIVE PERCENT 0 % (BEAKER) (test code = 437) NEUTROPHILS ABSOLUTE COUNT 15.53 K/ L 1.80-8.00 H (BEAKER) (test code = 670) LYMPHOCYTES ABSOLUTE COUNT 2.18 K/ L 1.48-4.50 (BEAKER) (test code = 414) MONOCYTES ABSOLUTE COUNT (BEAKER) 1.18 K/ L 0.00-1.30 (test code = 415) EOSINOPHILS ABSOLUTE COUNT 0.26 K/ L 0.00-0.50 (BEAKER) (test code = 416) BASOPHILS ABSOLUTE COUNT (BEAKER) 0.07 K/ L 0.00-0.20 (test code = 417) IMMATURE GRANULOCYTES-RELATIVE 0.70 % 0.00-0.00 H PERCENT (BEAKER) (test code = 2801) POCT-GLUCOSE [id number] 21:00:24 Test Item Value Reference Range Interpretation Comments POC-GLUCOSE METER 184 mg/dL 70-110 H : TESTED A T SLSL 1317 (BEAKER) (test code [address], = 1538) [facility] 77 478: Industrial Editor/Techni armando ID = [id number] for [facility]
[2022-09-06] MEDS ORDERED: LEVALBUTEROL 1.25 MG/3 ML NEB ONE (05:17)
[2022-09-06] MEDS ORDERED: NA CHLORIDE 0.9% 500 ML ONE (05:18)
[2022-09-06 05:34] LABS: Absolute Lymphocytes (CBC) 1.6 K/uL (0.7-4.9); Hematocrit 24.7 % (36.0-45.0); Lymphocytes % 9.5 % (15.3-44.8); MPV 6.4 fL (7.6-11.3); RBC Red Blood Cell Count 3.63 M/uL (3.86-4.86)
[2022-09-06 05:50] LABS: Potassium 3.8 mmol/L (3.5-5.1); Troponin High Sensitivity 5.6 pg/mL (<58.9)
[2022-09-06 06:22] LABS: Blood Morphology Comment NOTED (NOT SEEN); Hypochromasia 1+; Platelet Estimate INCR; Polychromasia SLIGHT; Stomatocytes 2+; White Blood Cell Scan OK (OK)
[2022-09-06 06:24] LABS: SARS-COV-2 RT PCR NEGATIVE (NEGATIVE)
[2022-09-06] MEDS ORDERED: CEFTRIAXONE 1000 MG/VIAL ONE (06:41)
[2022-09-06] MEDS ORDERED: AZITHROMYCIN 500 MG INJ IVPB ONE (06:41)
[2022-09-06] MEDS ORDERED: NA CHLORIDE 0.9% 50 ML IV ONE (06:41)
[2022-09-06] MEDS ORDERED: NA CHLORIDE 0.9% 250 ML ONE (06:41)
--- NOTE | 2022-09-06 07:32 | RAD REPORT ---
EXAM DESCRIPTION: CT - Chest For Pe Angio - 09/06/2022 6:33 am CLINICAL HISTORY: further eval left lung COMPARISON: Chest Single View dated 09/06/2022 TECHNIQUE: Dynamically enhanced axial 3 mm thick images of the chest were obtained during administra tion of <100> mL Isovue 370 IV contrast. Coronal and oblique reconstruction images were generated and reviewed. Exam utilizes a protocol for optimal evaluation of pulmonary arterial tree. Maximum intensity projections 3D imaging was utilized All CT scans are performed using dose optimization technique as appropriate and may include automated exposure control or mA/KV adjustment according to patient size. FINDINGS: Chest Wall: No suspicious thyroid nodules or pathologic lymphadenopathy. Lungs: Suspected intrapulmonary fluid collection in the left lower lobe measuring 11.2 x 6.6 cm. Ther e is adjacent lung consolidation and atelectasis. Pleura: Small left effusion. Mediastinum/jeanette: Mediastinal and hilar lymphadenopathy which is presumably reactive. Pulmonary arteries/Aorta: Limited by motion. No central pulmonary embolus. The segmental and subsegme ntal pulmonary artery is, particularly in the right lung are not well assessed. No aortic aneurysm. Heart: No significant pericardial effusion. Normal heart size. Upper abdomen: No acute abnormality.Gastric bypass. Bones: No acute abnormality. IMPRESSION: 1. Limited evaluation for pulmonary embolism due to motion artifact. No central pulmonar y embolus. 2. Enhancing fluid collection in the left lower lobe concerning for an intrapulmonary abscess and sma ll left parapneumonic effusion. Imaging follow-up is recommended to exclude malignancy as an underlyi ng or contributing factor.
--- NOTE | 2022-09-06 09:23 | ER ---
Nurse's Notes [facility] Name: Emily Nino Age: 62 yrs Sex: Female : 1960 Arrival Date: 09/06/2022 Time: 04:39 Bed 6 Private MD: Diagnosis: Acute respiratory failure with hypoxia;Severe sepsis without septic shock;Pulmonary abscess Presentation: 09/06 04:46 Chief complaint: Patient states: "I was in the hospital not to long ago with pneumonia tw5 and a deflated lung. I don't feel like I am getting much better.". Coronavirus screen: Vaccine status: Patient reports receiving the 2nd dose of the covid vaccine. [place]. Ebola Screen: Patient negative for fever greater than or equal to 101.5 degrees Fahrenheit, and additional compatible Ebola Virus Disease symptoms Patient denies exposure to infectious person. Patient denies travel to an Ebola-affected area in the 21 days before illness onset. Initial Sepsis Screen: Does the patient meet any 2 criteria? RR > 20 per min. HR > 90 bpm. Does the patient have a suspected source of infection? Yes: Productive cough/pneumonia. Risk Assessment: Do you want to hurt yourself or someone else? Patient reports no desire to harm self or others. Onset of symptoms is unknown. 04:46 Method Of Arrival: Wheelchair tw5 04:46 Acuity: NBA 2 tw5 04:54 Initial Sepsis Screen: If YES to both, name of provider notified: Hubert Penn MD tw5 Triage Assessment: 04:52 General: Appears uncomfortable, Behavior is calm. Pain: Pain currently is 4 out of 10 tw5 on a pain scale. Respiratory: Reports shortness of breath at rest Onset: The symptoms/episode began/occurred at an unknown time. the patient has moderate shortness of breath. Historical: - Allergies: 04:52 Cipro PO; tw5 - PMHx: 04:52 Pneumonia; tw5 - PSHx: 04:52 section; gastroplasty; tw5 - Immunization history:: Flu vaccine is up to date. - Social history:: Smoking status: Patient/guardian denies using tobacco, but has a distant history of tobacco abuse. - Family history:: not pertinent. - Hospitalizations: : Patient was recently seen at. Screenin:[facility] ED Fall Risk Assessment (Adult) History of falling in the last 3 months, tw5 including since admission. Abuse screen: Denies threats or abuse. Denies injuries from another. Nutritional screening: No deficits noted. Tuberculosis screening: No symptoms or risk factors identified. Assessment: 06:35 General: Appears uncomfortable, ill, Behavior is calm, cooperative. Pain: Complains of as6 pain in chest. Neuro: Level of Consciousness is awake, alert, obeys commands, Oriented to person, place, time, situation. Cardiovascular: Reports chest pain, shortness of breath, Rhythm is sinus tachycardia. Respiratory: Airway is patent Trachea midline Respiratory effort is even, labored, Respiratory pattern is tachypnea Breath sounds are coarse Breath sounds with crackles bilaterally. 06:45 General: pt placed on BiPAP . as6 06:52 Respiratory: Patient placed on BiPAP: Inspiratory Pressure: 14 Expiratory (EPAP) as6 Pressure: 7 FiO2%: 40 Respiratory Rate: 14. 08:43 Reassessment: No changes from previously documented assessment. Patient and/or family kr3 updated on plan of care and expected duration. Pain level reassessed. Patient is alert, oriented x 3, equal unlabored respirations, skin warm/dry/pink. 10:31 Reassessment: Gave report to JULIET Maharaj [facility]. kr3 Vital Signs: 04:46 BP 110 / 55; Pulse 110; Resp 22; Temp 98.3; Pulse Ox 89% on R/A; Weight 71.67 kg; tw5 Height 5 ft. 3 in. (160.02 cm); Pain 9/10; 06:35 BP 106 / 80; Pulse 106; Resp 31 S; Pulse Ox 96% on 2 lpm NC; as6 07:22 BP 103 / 62; Pulse 101; Resp 31; Pulse Ox 100% on BiPAP; iw 08:43 BP 113 / 72; Pulse 96; Pulse Ox 98% on BiPAP; kr3 08:45 Resp 25; kr3 04:46 Body Mass Index 27.99 (71.67 kg, 160.02 cm) tw5 ED Course: 04:39 Patient arrived in ED. jj6 04:41 Hubert Penn MD is Attending Physician. rn 04:42 oSlo Booker RN is Primary Nurse. as6 04:51 Triage completed. tw5 04:52 Arm band placed on. tw5 05:02 XRAY CXR (1 view) In Process Unspecified. EDMS 05:14 EKG done, by ED staff, reviewed by Hubert Penn MD. mb4 05:20 Initial lab(s) drawn, by me, sent to lab. Inserted saline lock: 22 gauge in right ll3 forearm, using aseptic technique. Blood collected. 06:35 CT Chest For PE Angio In Process Unspecified. EDMS 06:36 Placed in gown. Bed in low position. Call light in reach. Side rails up X2. as6 07:07 Attending Physician role handed off by Hubert Penn MD rt 07:07 Raúl Franks MD is Attending Physician. rt 07:53 initiated a transfer with Merna Torres Rn from the [facility]. eb 09:08 connected the emergency room doctor for [facility] with Dr. Franks for patient eb transfer consultation. 09:11 administrative approval given by Merna Torres Rn/ patient has been accepted to [facility] ED/ Dr. Tubbs has accepted the patient in transfer/ report to be called to [phone]. Administered Medications: 05:19 Drug: NS 0.9% 500 ml Route: IV; Rate: bolus; Site: right forearm; ll3 05:20 Drug: Xopenex (levalbuterol) 1.25 mg Route: Inhalation; ll3 06:44 Drug: Rocephin (cefTRIAXone) 1 grams Route: IV; Rate: calculated rate; Site: right as6 forearm; 06:52 Drug: Zithromax (azithromycin) 500 mg Route: IVPB; Infused Over: 1 hrs; Site: right as6 forearm; Medication: 06:45 VIS not applicable for this client. as6 Outcome: 09:22 ER care complete, transfer ordered by . rt 12:35 Patient left the ED. iw Signatures: Dispatcher [employer] Juana Borges RN JULIET iw Hubert Penn MD MD rn Botello, Elizabeth eb Baxter, Mackenzie mb4 Alessia Jolly tw5 Roberta Bartlett jj6 Solo Booker RN RN as6 Jason Hennessy RN RN ll3 Ilene Kimble RN RN kr3 Raúl Franks MD MD rt
--- NOTE | 2022-09-06 09:23 | EDPHYS ---
Physician Documentation [facility] Name: Emily Nino Age: 62 yrs Sex: Female : 1960 Arrival Date: 09/06/2022 Time: 04:39 Bed 6 Private MD: ED Physician Raúl Franks HPI: 09/06 05:09 This 62 yrs old Female presents to ER via Wheelchair with complaints of Breathing rn Difficulty. 05:09 The patient has shortness of breath at rest, with light activity. rn 05:10 Onset: The symptoms/episode began/occurred 4 day(s) ago. Duration: The symptoms are rn continuous. The patient's shortness of breath is aggravated by exertion, light activity, is alleviated by nothing. Associated signs and symptoms: Pertinent positives: productive cough, fever, Pertinent negatives: hemoptysis. Severity of symptoms: At their worst the symptoms were moderate in the emergency department the symptoms are unchanged. The patient has experienced a previous episode. The patient has been recently seen by a physician:. Pt reports admitted 1 month ago with pneumonia, got better, now coughing and sob again. + fever. Sick for 2 days. . Historical: - Allergies: 04:52 Cipro PO; tw5 - PMHx: 04:52 Pneumonia; tw5 - PSHx: 04:52 section; gastroplasty; tw5 - Immunization history:: Flu vaccine is up to date. - Social history:: Smoking status: Patient/guardian denies using tobacco, but has a distant history of tobacco abuse. - Family history:: not pertinent. - Hospitalizations: : Patient was recently seen at. ROS: 05:10 Constitutional: + fever Eyes: Negative for injury, pain, redness, and discharge, ENT: rn Negative for injury, pain, and discharge, Neck: Negative for injury, pain, and swelling, Cardiovascular: Negative for chest pain, palpitations, and edema, Respiratory: + cough and sob Abdomen/GI: Negative for abdominal pain, nausea, vomiting, diarrhea, and constipation, MS/Extremity: Negative for injury and deformity, Skin: Negative for injury, rash, and discoloration, Neuro: Negative for headache, numbness, tingling, and seizure. Exam: 05:10 Constitutional: This is a well developed, well nourished patient who is awake, alert, rn persistent cough Head/Face: Normocephalic, atraumatic. ENT: no stridor, dry MM Cardiovascular: Tachycardic, regular Respiratory: + mild tachypnea, coarse bilateral breath sounds, diminished left base Abdomen/GI: soft, non-tender Skin: Warm, dry MS/ Extremity: Pulses equal, no cyanosis. Neuro: Awake and alert, GCS 15 05:14 ECG was reviewed by the Attending Physician. rn Vital Signs: 04:46 BP 110 / 55; Pulse 110; Resp 22; Temp 98.3; Pulse Ox 89% on R/A; Weight 71.67 kg; tw5 Height 5 ft. 3 in. (160.02 cm); Pain 9/10; 06:35 BP 106 / 80; Pulse 106; Resp 31 S; Pulse Ox 96% on 2 lpm NC; as6 07:22 BP 103 / 62; Pulse 101; Resp 31; Pulse Ox 100% on BiPAP; iw 08:43 BP 113 / 72; Pulse 96; Pulse Ox 98% on BiPAP; kr3 08:45 Resp 25; kr3 04:46 Body Mass Index 27.99 (71.67 kg, 160.02 cm) tw5 MDM: 04:41 Patient medically screened. rn 09:22 Differential diagnosis: pneumonia, Pneumothorax pulmonary edema, Pulmonary Embolism rt abscess, pulmonary mass. Data reviewed: vital signs, nurses notes, lab test result(s), EKG, radiologic studies. 09/06 04:44 Order name: BMP; Complete Time: 05:55 rn 09/06 04:44 Order name: CBC with Diff; Complete Time: 06:23 rn 09/06 04:44 Order name: NT PRO-BNP; Complete Time: 05:55 rn 09/06 04:44 Order name: Troponin HS; Complete Time: 05:55 rn 09/06 04:44 Order name: COVID-19/FLU A+B; Complete Time: 06:29 rn 09/06 04:44 Order name: XRAY CXR (1 view) rn 09/06 05:16 Order name: CT Chest For PE Angio; Complete Time: 07:57 rn 09/06 05:37 Order name: CBC Smear Scan; Complete Time: 06:23 EDMS 09/06 06:31 Order name: Lactate w/ 2H reflex if indic.; Complete Time: 07:22 rn 09/06 06:38 Order name: BIPAP rn 09/06 04:44 Order name: EKG; Complete Time: 04:45 rn 09/06 04:44 Order name: Cardiac monitoring; Complete Time: 06:35 rn 09/06 04:44 Order name: EKG - Nurse/Tech; Complete Time: 05:13 rn 09/06 04:44 Order name: IV Saline Lock; Complete Time: 05:13 rn 09/06 04:44 Order name: Labs collected and sent; Complete Time: 05:13 rn 09/06 04:44 Order name: O2 Per Protocol; Complete Time: 05:13 rn 09/06 04:44 Order name: O2 Sat Monitoring; Complete Time: 05:13 rn EC:14 Rate is 108 beats/min. Rhythm is regular. QRS [place] is Normal. SC interval is normal. rn QRS interval is normal. QT interval is normal. No Q waves. T waves are Normal. No ST changes noted. Clinical impression: Sinus tachycardia. Interpreted by me. Reviewed by me. Administered Medications: 05:19 Drug: NS 0.9% 500 ml Route: IV; Rate: bolus; Site: right forearm; ll3 05:20 Drug: Xopenex (levalbuterol) 1.25 mg Route: Inhalation; ll3 06:44 Drug: Rocephin (cefTRIAXone) 1 grams Route: IV; Rate: calculated rate; Site: right as6 forearm; 06:52 Drug: Zithromax (azithromycin) 500 mg Route: IVPB; Infused Over: 1 hrs; Site: right as6 forearm; Disposition: 09:22 Critical Care:. rt Disposition Summary: 09/06/22 09:22 Transfer Ordered Transfer Location: [facility] rt Reason: Higher level of care rt Condition: Serious rt Problem: new rt Symptoms: have improved rt Accepting Physician: Severe(09/06/22 12:35) iw Diagnosis - Acute respiratory failure with hypoxia rt - Severe sepsis without septic shock rt - Pulmonary abscess rt Forms: - Medication Reconciliation Form rt - SBAR form rt Critical care time excluding procedures: : Critical care time: Bedside Care: 30 minutes, Consultation: 10 minutes. Total time: 40 rt minutes Signatures: Dispatcher [employer] Juana Borges RN RN iw Nieto, Roman, MD MD rn Wood, Tiffany tw5 Solo Booker, RN RN as6 Jason Hennessy RN RN ll3 Raúl Franks MD MD rt Corrections: (The following items were deleted from the chart) :35 09:22 Severe rt iw
[2022-09-06 12:45] VITALS: TEMP 98.3
[2022-09-06 13:02] VITALS: BP 113/72; O2SAT 98
--- NOTE | 2022-09-06 15:41 | RAD REPORT ---
EXAM DESCRIPTION: RAD - Chest Single View - 09/06/2022 5:00 am CLINICAL HISTORY: The patient is 62 years old and is Female; Cough TECHNIQUE: Single view of the chest. COMPARISON: July 13, 2022. FINDINGS: Lungs: Large opacity in the left lung without significant silhouetting of the hemidiaphr agm or left heart border. This may be a large area of consolidation, mass and/or loculated pleural fl uid. Right lung is clear. Pleural space: Small left pleural effusion versus pleural thickening. No pneumothorax. No right pleural effusion. Heart: Unremarkable. No cardiomegaly. Mediastinum: Unremarkable. Bones/joints: Multilevel vertebral osteophytes. No acute rib fracture. Upper abdomen: No free air in the visualized upper abdomen. IMPRESSION: 1. Large opacity in the left lung without significant silhouetting of the hemidiaphrag m or left heart border. This may be a large area of consolidation, mass and/or loculated pleural flui d. CT follow-up recommended. 2. Small left pleural effusion versus pleural thickening. Electronically signed by: Shameka Christie MD 09/06/2022 5:20 AM NEWSPAPER JOURNALIST Due to temporary technical issues with the PACS/Fluency reporting system, reports are being signed by the in house radiologists without review as a courtesy to insure prompt reporting. The interpreting radiologist is fully responsible for the content of the report.
--- NOTE | 2022-09-07 17:47 | EKG ---
Test Date: 2022-09-06 Test Time: 05:11:30 Computer Clerk: DIANA MEASUREMENT RESULTS: Intervals: Rate: 108 GA: 138 QRSD: 74 QT: 348 QTc: 466 [place]: P: 66 GA: 138 QRS: 46 T: 57 INTERPRETIVE STATEMENTS: Sinus tachycardia with premature supraventricular complexes and with occasional premature ventricular complexes Nonspecific T wave abnormality Abnormal ECG No previous ECG available for comparison Electronically Signed On 09-07-22 17:44:33 DISEASE CASE MANAGER RN by Kiko Arthur
== END 2022-09-06 12:35 | disposition short-term general hospital (02) ==
LOC: ER 04:37
DX: J96.01 Acute respiratory failure with hypoxia (principal); R65.20 Severe sepsis without septic shock; J85.2 Abscess of lung without pneumonia; Z88.1 Allergy status to other antibiotic agents; Z20.822 Contact with and (suspected) exposure to COVID-19
CPT/HCPCS: 93005; 85025; 80048; 36415; 83605; 84484; 83880; 0240U; 71275; 71045; 94660; Q9967; J7614; J0456; J7050; J7040